=== PATIENT | male | born 1950 | race Caucasian/White ===

== ENCOUNTER → 2016-11-05 | Outpatient (CLI) | payer BC ==
[~2016-11-05] MED LIST: ACET-1256 PO; ASPI325T39 PO; ASPI81TA28 PO; ATOR10TA82 PO; BRIN1SUS OPR; CHOL2000 PO; GEMF600T3 PO; HYDR50TA3 PO; INSDGI SC; INSU100I2 SC; LISI40TA PO; MULT-506 PO; PRED1SUS3 OPL; RXC5 PO; TRAZ100T29 PO; ULT50X PO; ZINC PO
[2016-11-05 17:27] LABS: HEMATOCRIT 37.3 % (42-52); MEAN CELL VOLUME 85.6 fL (80-100); MEAN CORPUSCULAR HGB CONC 35.1 g/dl (32-36); MEAN PLATELET VOLUME 9.7 fL (7.4-10.4); PLATELET COUNT 254 K/uL (130-400); RED BLOOD COUNT 4.36 M/uL (4.7-6.1)
[2016-11-05 17:33] LABS: URINE APPEARANCE CLEAR (CLEAR); URINE BILIRUBIN NEG (NEG); URINE COLOR DK YELLOW; URINE NITRITE NEG (NEG); URINE SPECIFIC GRAVITY 1.022 (1.000-1.030); UROBILINOGEN NEG (NEG)
[2016-11-05 17:38] LABS: MANUAL MICROSCOPIC REQUIRED? NO; REVIEW REQ? NO
[2016-11-05 18:02] LABS: URINE PROTIEN/CREAT RATIO 0.1 (0-0.2); URINE TOTAL PROTEIN 27.5 mg/dl (0-11.9)
[2016-11-05 18:17] LABS: BLOOD UREA NITROGEN 37 mg/dl (7-18); BUN/CREATININE RATIO 20.3 (10-20); CALCIUM 8.8 mg/dl (8.5-10.1); CARBON DIOXIDE 23 mmol/L (21-32); CHLORIDE 105 mmol/L (98-107); GLUCOSE 217 mg/dl (70-99); POTASSIUM 3.7 mmol/L (3.5-5.1); SODIUM 141 mmol/L (136-145)
[2016-11-05 18:19] LABS: PHOSPHORUS 2.6 mg/dl (2.5-4.9)
[2016-11-06 06:29] LABS: ESTIMATED AVERAGE GLUCOSE 177 mg/dl; HA1C FLAG Normal (Normal)
== END | disposition home or self-care (01) ==
LOC: C.LAB1850 16:55
PROVIDERS: ATTEND Internal Medicine Nephrology
DX: E55.9 Vitamin D deficiency, unspecified (principal); N18.2 Chronic kidney disease, stage 2 (mild); R80.9 Proteinuria, unspecified; I12.9 Hypertensive chronic kidney disease with stage 1 through stage 4 chronic kidney disease, or unspecified chronic kidney disease

== ENCOUNTER → 2016-11-26 | Day surgery (SDC) | payer BC ==
[2016-11-06 12:37] VITALS: Ht 172.7 cm; Wt 89.5 kg
[~2016-11-26] VITALS: Ht 172.7 cm; Wt 89.5 kg
[~2016-11-26] MED LIST changes: +500ML BSSPLUS 0.5ML EPI1:1000 IRRIG ONE; +ACETAMINOPHEN 325 MG TAB PO PRN; -ASPI325T39 PO; -ATOR10TA82 PO; +ATOR10TA88 PO; +ATROPINE SULFATE 0.1 MG/ML 5ML SYR IV PRN; +BSS FLUSH ONE; +BUPIVACAINE HCL 0.75% 10 ML AMP/VIAL ONE; +CEFAZOLIN SOD 1 GM VIAL ONE; +DEXAMETHASONE SOD INJ 4 MG/ML VIAL ONE; +EpHEDrine SULFATE INJ 50 MG/ML AMP IV PRN; +EpINEphrine INJ 1MG/ML AMP 1 MG/ML AMP ONE; +FENTANYL CITRATE INJ 50 MCG/1 ML 2 ML VIAL IV PRN; +FENTANYL CITRATE INJ 50 MCG/1 ML 2 ML VIAL ONE; +HYALURONIDASE HUMAN 150 UNIT/ML INJ ONE; +INDOCYANINE GREEN 25 MG/10 ML ONE; +LACTATED RINGER'S 1000ML 500 ML IV SCH; +LIDOCAINE HCL 2% 2 ML VIAL (20MG/ML) ONE; +LIDOCAINE MPF 4% INJ INJ ONE; +MIDAZOLAM HCL 1 MG/ML 2ML VIAL ONE; +NEOMYCIN/POLYMYX/DEXAMETH OP OINT PER APP CHARGE ONE; +OCUCOAT 1 ML SOLN IO ONE; +ONDANSETRON INJ 2 MG/ML 2 ML VIAL IV PRN; +POVIDONE-IODINE OP SOLN 30 ML BTL OPL ONE; +PROPARACAINE 0.5% OP SOLN PER DROP CHARGE OPL SCH; +PROPOFOL IV EMULSION 10 MG/ML 20 ML VIAL IV ONE; -RXC5 PO; +TIMOLOL MALEATE 0.5% OP SOLN PER DROP CHARGE ONE; +TRIAMCINOLONE ACETONIDE OPHTH 40 MG/ML VIAL STERILE IO ONE
[2016-11-26] MEDS: PHENYLEPHRINE HCL 2.5% OP SOLN PER DROP CHARGE OPL SCH ×2 (07:25→07:32)
[2016-11-26] MEDS: TROPICAMIDE 1% OP SOLN PER DROP CHARGE OPL SCH ×2 (07:26→07:33)
--- NOTE | 2016-11-26 08:13 | History & Physical Bridge - SC ---
H&P Re-Evaluation Bridge Note: pt has dislocated Iluvein implant in his left eye and is here for vitrectomy and removal of implant left eye. I have examined the patient, reviewed the History & Physical and in the interval since the performance of the History & Physical I have noted the following changes of clinical significance: No changes noted
--- NOTE | 2016-11-26 08:33 | History and Physical: Surg Cnt ---
History & Physical Date Nov 26, 2016. Chief Complaint dislocated Iluvein implant, left eye History of Present Illness The patient is a 66 year old male with complaints of Past Medical/Surgical History Medical Problems: (1) CKD (chronic kidney disease), stage II (2) DM type 2 (diabetes mellitus, type 2) (3) HTN (hypertension) (4) Hyperlipemia (5) Lumbar stenosis with neurogenic claudication Surgical Problems: (1) H/O eye surgery (2) S/P cholecystectomy Allergies Coded Allergies: No Known Allergies (Unverified , 11/26/16) Home Medications Scheduled Aspirin (Aspirin Ec), 81 MG PO BID Atorvastatin (Lipitor), 10 MG PO HS Brinzolamide Oph (Azopt Oph), 1 DROP OPR BID Cholecalciferol (Vitamin D3), 1 CAP PO QPM Gemfibrozil (Lopid), 600 MG PO BID Hydrochlorothiazide (Hctz), 50 MG PO HS Insulin Glargine (Lantus), 40 UNITS SC HS Insulin Lispro (Human) (Humalog Kwikpen), SC TIDM Lisinopril (Zestril), 40 MG PO BID Trazodone Hcl (Trazodone), 100 MG PO UD [Zinc], 50 MG PO BID Physical Examination Skin: warm/dry Eyes: normal inspection Respiratory/Chest: lungs clear Cardiovascular: regular rate, rhythm Extremities: normal inspection Plan of Treatment removal of Iluvein implant left eye.
--- NOTE | 2016-11-26 09:50 | [facility] Operative Report ---
Operative Report Date of Service Nov 26, 2016. Operative Report PREOPERATIVE DIAGNOSIS: Anterior dislocated Iluvien implant causing corneal decompensation, left eye. ICD10 CODE: T85.398A OPERATIVE DIAGNOSIS: same. PROCEDURE: 1. Pars plana vitrectomy, 23 gauge. 2. Removal of Iluvien implant. 3. Injection of intravitreal triamcinolone 2mg. All to the left eye. CPT CODE: [id number] SURGEON: Real Hairston D.O. COMPLICATIONS: None. ESTIMATED BLOOD LOSS: None. SPECIMENS: None. ANESTHESIA: Retrobulbar block and MAC. INDICATIONS FOR PROCEDURE: Surgery is indicated to decrease risk of vision loss. CONSENT: The risks, benefits and alternatives were discussed with the patient including but not limited to decreased visual acuity, failure to achieve desired results, loss of the eye, infection, pain, glaucoma, lens changes, retinal tears, retinal detachment, the need for more procedures, drooping of the eyelid, blindness, and double vision. The patient is aware of risks and consents to the surgery. Consent is signed and on the chart. OPERATION AND FINDINGS: The patient was brought to the operating room where the patient was identified by name, date, and medical record number. The surgical site was confirmed with the informed written consent. The patient was sedated by the anesthesiology team after which a 50:50 mixture of 4% lidocaine and 0.75% bupivacaine with hyaluronidase was administered in a standard retrobulbar fashion. A total of 4 ml was administered without difficulty. The patient was then prepped and draped in the usual sterile manner for retinal surgery. A wire lid speculum was placed and an Waylon 23-gauge trocar cannula system was employed. Inspection revealed the Iluvien implant inferiorly and corneal folds as well as a loose but centered posterior chamber implant. The inferior temporal trocar cannula was first placed in an angled fashion 3.75mm posterior to the surgical limbus and the infusion cannula was inserted into this cannula after which the intravitreal position was verified prior to turning the infusion on. A 2mm clear corneal incision was made at the 11 o'clock meridian with a keratome. Occucoat was instilled into the anterior chamber and serrated forceps were used to then remove the Iluvien implant without difficulty. Next a limited anterior vitrectomy was performed through the infusion trocar cannula site to make room for intravitreal Triescence 4mg which was then injected. The trocar cannulas were then removed and sutured with 8-0 Vicryl suture. The intraocular pressure was found to be within normal limits by palpation and subconjunctival injections of Kefzol[] and dexamethasone were administered inferiorly and superiorly. The wire lid speculum was removed. Maxitrol and timolol were applied to the surface of the eye. A light patch and shield were taped over the surface of the eye and the patient left the Operating Room in stable condition having tolerated the procedure well. DISPOSITION: The patient has an appointment the following morning in the Ophthalmology Clinic. The patient is to call immediately if there are any problems overnight. I attest to the content of the Intraoperative Record and any orders documented therein. Any exceptions are noted below.
--- NOTE | 2016-11-26 09:51 | Discharge Instructions-SurgCtr ---
Discharge Instructions Date of Service Nov 26, 2016. Visit Reason for Visit: Left Eye Illuvien Discharge Discharge Diagnosis / Problem: same Discharge Goals Goal(s): Improve function Medications Stopped Medications Name(s): Lisinopril and hctz stopped x 2 days. Activity Recommendations Activity Limitations: per Instructions/Follow-up section Anesthesia . Post Anesthesia Instructions: If you have had General Anesthesia or IV Sedation: * Do not drive today. * Resume driving when surgeon permits. * Do not make important decisions or sign legal documents today. * Call surgeon for: 1. Temperature elevations greater than 101 degrees F. 2. Uncontrollable pain. 3. Excessive bleeding. 4. Persistent nausea and vomiting. 5. Medication intolerance (nausea, vomiting or rash). * For nausea and vomiting use only clear liquids such as: tea, soda, bouillon until nausea subsides, then gradually increase diet as tolerated. * If you have any concerns or questions, call your surgeon's office. If physician is unavailable and it is an emergency, call 911 or go to the nearest emergency room. . Instructions / Follow-Up Instructions / Follow-Up * May take Tylenol if needed for discomfort. * Do NOT remove eye shield. * NO straining, heavy lifting (>15 pounds) or bending below waist. * Avoid getting water or soap directly into operative eye. * Do NOT rub eye. If you experience increasing eye pain not relieved by medication, please contact us immediately at [phone]. If you are unable to reach someone at the above number, call [phone] and ask to speak with the EYE DOCTOR TREE SURGEON. Inform them that you are a Dr. Hairston patient who had recent surgery. Diet Recommendations Home Diet: resume previous diet Procedures Procedures Performed: Left Eye 23 Gauge Vitrectomy; Steroid Implant Removal Pending Studies Studies pending at discharge: no Medical Emergencies . Who to Call and When: Medical Emergencies: If at any time you feel your situation is an emergency, please call 911 immediately. . Non-Emergent Contact Non-Emergency issues call your: Lumber Piler Operator . . "Provider Documentation" section prepared by Real Hairston. .
[2016-11-26 10:13] VITALS: BP 161/95; PULSE 56; TEMP 36.4; O2SAT 99
--- NOTE | 2016-11-26 10:21 | Anesthesia Progress Nt - [facility] ---
Anesthesia Post Op Note Date & Time Nov 26, 2016 at 10:20 Vital Signs Pain Intensity: 0 Vital Signs Past 12 Hours Date Time Temp Pulse Resp B/P (MAP) Pulse Ox O2 Delivery O2 Flow Rate FiO2 11/26/16 10:13 36.4 56 18 161/95 (117) 99 Room Air 11/26/16 09:50 36.0 56 16 169/69 (102) 99 Room Air 11/26/16 07:20 36.6 60 18 146/67 (93) 96 Room Air Notes Mental Status: alert / awake / arousable, participated in evaluation Pt Amnestic to Procedure: Yes Nausea / Vomiting: adequately controlled Pain: adequately controlled Airway Patency, RR, SpO2: stable & adequate BP & HR: stable & adequate Hydration State: stable & adequate Anesthetic Complications: no major complications apparent
--- NOTE | 2016-11-26 11:01 | [facility] Post Operative Brief Note ---
Immediate Operative Summary Operative Date Nov 26, 2016. Pre-Operative Diagnosis Left Eye Illuvien Removal Post-Operative Diagnosis Same Procedure(s) Performed Left Eye 23 Gauge Vitrectomy; Steroid Implant Removal Surgeon Dr Hairston Lab Director Surgeon(s) None Estimated Blood Loss 0ML Findings dislocated Iluvien implant, left eye Specimens None
== END | disposition home or self-care (01) ==
LOC: X.SURG 06:48
PROVIDERS: ATTEND Ophthalmology
DX: T85.398A Other mechanical complication of other ocular prosthetic devices, implants and grafts, initial encounter (principal); Y83.2 Surgical operation with anastomosis, bypass or graft as the cause of abnormal reaction of the patient, or of later complication, without mention of misadventure at the time of the procedure; N18.2 Chronic kidney disease, stage 2 (mild); E78.5 Hyperlipidemia, unspecified; E11.9 Type 2 diabetes mellitus without complications; I12.9 Hypertensive chronic kidney disease with stage 1 through stage 4 chronic kidney disease, or unspecified chronic kidney disease; Z90.49 Acquired absence of other specified parts of digestive tract; Z79.82 Long term (current) use of aspirin

== ENCOUNTER 2016-12-19 05:17 | Inpatient (IN) | payer BC, OTHER ==
[2016-12-11 09:27] VITALS: BMI 29.0
--- NOTE | 2016-12-11 10:04 | PAT Medication Instructions ---
Service Date Dec 11, 2016. Current Home Medication List Aspirin (Aspirin Ec), 81 MG PO BID Atorvastatin (Lipitor), 10 MG PO HS Brinzolamide Oph (Azopt Oph), 1 DROP OPR BID Cholecalciferol (Vitamin D3), 1 CAP PO QPM Gemfibrozil (Lopid), 600 MG PO BID Hydrochlorothiazide (Hctz), 50 MG PO HS Insulin Glargine (Lantus), 40 UNITS SC HS Insulin Lispro (Human) (Humalog Kwikpen), SC TIDM Lisinopril (Zestril), 40 MG PO BID Prednisolone Acetate (Ophth) (Pred Forte 1% Oph), 1 DROPS OPL TID Trazodone Hcl (Trazodone), 100 MG PO UD [Zinc], 50 MG PO BID Medication Instructions For Your Scheduled Surgery - Instructed by surgeon to hold as of the night before surgery: Aspirin (Aspirin Ec), 81 MG PO BID - Hold the following medications 24 hours prior to surgery: Gemfibrozil (Lopid), 600 MG PO BID Lisinopril (Zestril), 40 MG PO BID - Hold the following medications the morning of surgery: [Zinc], 50 MG PO BID Insulin Lispro (Human) (Humalog Kwikpen), SC TIDM - Take the following medications the morning of surgery: Brinzolamide Oph (Azopt Oph), 1 DROP OPR BID Prednisolone Acetate (Ophth) (Pred Forte 1% Oph), 1 DROPS OPL TID - Take the following medications as scheduled the night before surgery: [Zinc], 50 MG PO BID Insulin Lispro (Human) (Humalog Kwikpen), SC TIDM Insulin Glargine (Lantus), 40 UNITS SC HS Brinzolamide Oph (Azopt Oph), 1 DROP OPR BID Prednisolone Acetate (Ophth) (Pred Forte 1% Oph), 1 DROPS OPL TID Atorvastatin (Lipitor), 10 MG PO HS Cholecalciferol (Vitamin D3), 1 CAP PO QPM Hydrochlorothiazide (Hctz), 50 MG PO HS Trazodone Hcl (Trazodone), 100 MG PO UD If you have any questions please call us at [phone] or [phone] or [phone]
[2016-12-11 11:13] LABS: BASO ABS # 0.07 K/uL (0-0.2); COMPLETE YES; EOS % 5.5 %; HEMATOCRIT 39.8 % (42-52); IG% 0.3 %; LYMPH % 26.4 %; LYMPH ABS # 1.92 K/uL (1.2-3.4); MEAN CELL VOLUME 87.3 fL (80-100); MEAN CORPUSCULAR HEMOGLOBIN 30.5 pg (25-34); MEAN CORPUSCULAR HGB CONC 34.9 g/dl (32-36); MEAN PLATELET VOLUME 9.8 fL (7.4-10.4); MONO % 8.7 %; NEUT % 58.1 %; PLATELET COUNT 282 K/uL (130-400); RED BLOOD COUNT 4.56 M/uL (4.7-6.1); WHITE BLOOD COUNT 7.26 K/uL (4.8-10.8)
[2016-12-11 11:21] LABS: BUN/CREATININE RATIO 19.1 (10-20); CALCIUM 10.3 mg/dl (8.5-10.1); CREATININE 1.5 mg/dl (0.60-1.40); POTASSIUM 4.7 mmol/L (3.5-5.1); URINE APPEARANCE CLEAR (CLEAR); URINE BILIRUBIN NEG (NEG); URINE COLOR YELLOW; URINE NITRITE NEG (NEG); URINE SPECIFIC GRAVITY 1.012 (1.000-1.030); UROBILINOGEN NEG (NEG); ZZUR CULT IF INDIC CLEAN CATCH NO
[2016-12-11 11:26] LABS: PARTIAL THROMBOPLASTIN RATIO 1.2; PROTHROMBIN TIME (PATIENT) 10.8 SECONDS (9.0-12.0)
[2016-12-11 11:30] LABS: MANUAL MICROSCOPIC REQUIRED? NO; REVIEW REQ? NO
--- NOTE | 2016-12-18 20:02 | HISTORY & PHYSICAL EXAMINATION ---
DATE OF ADMISSION: 12/19/2016 CHIEF COMPLAINT: Chronic right shoulder pain. HISTORY OF PRESENT ILLNESS: This is a 66-year-old male patient of Dr. Boone complaining of chronic right shoulder pain, longstanding, now progressively getting worse. He has been diagnosed with end-stage osteoarthritis per clinical and radiographic exams. The patient wishes to proceed with a right total shoulder arthroplasty, biceps tenodesis and distal clavicle excision. PAST MEDICAL HISTORY: Hypertension, hypercholesterolemia, diabetes mellitus with insulin, osteoarthritis and obesity. SOCIAL HISTORY: Nonsmoker and nondrinker. FAMILY HISTORY: Noncontributory. PAST SURGICAL HISTORY: Cholecystectomy and lumbar surgery. MEDICATIONS: 1. Gemfibrozil 600 mg 2 times daily. 2. Atorvastatin 10 mg daily. 3. Hydrochlorothiazide 50 mg daily. 4. Lantus 100 units per mL subQ. 5. Humalog 100 units per mL subQ. 6. Lisinopril 40 mg b.i.d. 7. Trazodone 50 mg 2 tablets daily. 8. Aspirin 81 mg b.i.d. ALLERGIES: No known drug allergies. PHYSICAL EXAMINATION: GENERAL: Well-developed and well-nourished 66-year-old male, in no acute distress. He is alert, oriented x3 and pleasant. HEENT: Normocephalic and atraumatic. Extraocular motions are intact. Pupils are equal and reactive to light. HEART: Regular rate and rhythm. No murmurs are appreciated. LUNGS: Clear. ABDOMEN: Soft and nontender, bowel sounds are present. EXTREMITIES: Right shoulder reveals active range of motion to 170. He has crepitation with passive range of motion. He has 4-/5 strength. NEUROLOGIC: Neurovascularly, he is intact in his right upper extremity. DIAGNOSES: Right shoulder end-stage osteoarthritis and acromioclavicular arthritis. He also has a history of hypertension, hypercholesterolemia, diabetes mellitus with insulin and obesity. PLAN: The patient was advised of his diagnoses. Indications, risks, benefits and postoperative course have all been reviewed. The patient wishes to proceed with a right total shoulder arthroplasty, biceps tenodesis and distal clavicle excision. Necessary consent forms, preoperative testing and clearances will be obtained. ANA
[2016-12-19] VITALS (11 sets, daily range): BP systolic 105–158; BP diastolic 50–79; PULSE 57–82; TEMP 36.6–36.8; O2SAT 94–100; Ht 172.7 cm; Wt 87.6 kg
[~2016-12-19] VITALS: Ht 172.7 cm; Wt 87.6 kg
[~2016-12-19 05:17] MED LIST changes: -500ML BSSPLUS 0.5ML EPI1:1000 IRRIG ONE; -ACET-1256 PO; -ACETAMINOPHEN 325 MG TAB PO PRN; -ATROPINE SULFATE 0.1 MG/ML 5ML SYR IV PRN; -BSS FLUSH ONE; -BUPIVACAINE HCL 0.75% 10 ML AMP/VIAL ONE; -CEFAZOLIN SOD 1 GM VIAL ONE; -DEXAMETHASONE SOD INJ 4 MG/ML VIAL ONE; -EpHEDrine SULFATE INJ 50 MG/ML AMP IV PRN; -EpINEphrine INJ 1MG/ML AMP 1 MG/ML AMP ONE; -FENTANYL CITRATE INJ 50 MCG/1 ML 2 ML VIAL IV PRN; -FENTANYL CITRATE INJ 50 MCG/1 ML 2 ML VIAL ONE; -HYALURONIDASE HUMAN 150 UNIT/ML INJ ONE; -INDOCYANINE GREEN 25 MG/10 ML ONE; -LACTATED RINGER'S 1000ML 500 ML IV SCH; -LIDOCAINE HCL 2% 2 ML VIAL (20MG/ML) ONE; -LIDOCAINE MPF 4% INJ INJ ONE; -MIDAZOLAM HCL 1 MG/ML 2ML VIAL ONE; -MULT-506 PO; -NEOMYCIN/POLYMYX/DEXAMETH OP OINT PER APP CHARGE ONE; -OCUCOAT 1 ML SOLN IO ONE; -ONDANSETRON INJ 2 MG/ML 2 ML VIAL IV PRN; -POVIDONE-IODINE OP SOLN 30 ML BTL OPL ONE; -PROPARACAINE 0.5% OP SOLN PER DROP CHARGE OPL SCH; -PROPOFOL IV EMULSION 10 MG/ML 20 ML VIAL IV ONE; -TIMOLOL MALEATE 0.5% OP SOLN PER DROP CHARGE ONE; -TRIAMCINOLONE ACETONIDE OPHTH 40 MG/ML VIAL STERILE IO ONE; -ULT50X PO
[2016-12-19] MEDS ORDERED: MULT-506 PO (05:49)
[2016-12-19] MEDS ORDERED: FAMOTIDINE 20 MG TAB PO SCH (06:00)
[2016-12-19] MEDS ORDERED: CEFAZOLIN 2000 MG/60 ML D5W 60 ML IV SCH (06:00)
[2016-12-19] MEDS ORDERED: GABAPENTIN 300 MG CAP PO SCH (06:00)
[2016-12-19] MEDS ORDERED: ACETAMINOPHEN 500 MG TAB PO SCH (06:00)
[2016-12-19] MEDS ORDERED: LACTATED RINGER'S 1000ML IV SCH (06:00)
[2016-12-19] MEDS ORDERED: CeleBREX 200 MG CAP PO SCH (06:00)
[2016-12-19] MEDS ORDERED: METOCLOPRAMIDE HCL 10 MG TAB PO SCH (06:00)
[2016-12-19] MEDS ORDERED: LACTATED RINGER'S 1000ML 1,000 ML IV SCH (06:00)
[2016-12-19] MEDS ORDERED: ACET-1256 PO (06:02)
[2016-12-19] MEDS ORDERED: ROPIVACAINE 0.5% 5 MG/ML 30 ML VIAL ONE (06:36)
[2016-12-19] MEDS ORDERED: MIDAZOLAM HCL 1 MG/ML 2ML VIAL ONE (06:41)
[2016-12-19] MEDS ORDERED: FENTANYL CITRATE INJ 50 MCG/1 ML 2 ML VIAL ONE (06:41)
[2016-12-19] MEDS ORDERED: BACITRACIN 50000 UNIT VIAL ONE (06:49)
[2016-12-19] MEDS ORDERED: EpINEphrine HCL INJ 1 MG/ML 5ML SYRINGE ONE (06:50)
[2016-12-19] MEDS ORDERED: FENTANYL CITRATE INJ 50 MCG/1 ML 2 ML VIAL IV PRN (07:00)
[2016-12-19] MEDS ORDERED: ATROPINE SULFATE 0.1 MG/ML 5ML SYR IV PRN (07:00)
[2016-12-19] MEDS ORDERED: ONDANSETRON INJ 2 MG/ML 2 ML VIAL IV PRN ×2 (07:00→10:45)
[2016-12-19] MEDS ORDERED: EpHEDrine SULFATE INJ 50 MG/ML AMP IV PRN (07:00)
--- NOTE | 2016-12-19 07:11 | History & Physical Bridge Note ---
H&P Re-Evaluation Bridge Note: I have examined the patient, reviewed the History & Physical and in the interval since the performance of the History & Physical I have noted the following changes of clinical significance: No changes noted
[2016-12-19] MEDS ORDERED: PROPOFOL IV EMULSION 10 MG/ML 20 ML VIAL IV ONE (07:53)
[2016-12-19] MEDS ORDERED: ROCURONIUM BROMIDE 10 MG/ML 5 ML VIAL ONE (07:53)
[2016-12-19] MEDS ORDERED: ONDANSETRON INJ 2 MG/ML 2 ML VIAL ONE (07:53)
[2016-12-19] MEDS ORDERED: EpHEDrine SULFATE 50MG/5ML SYR ONE (07:53)
[2016-12-19] MEDS ORDERED: PHENYLEPHRINE 100MCG/ML 5ML SYR ONE (07:53)
[2016-12-19] MEDS ORDERED: DEXAMETHASONE SOD INJ 4 MG/ML VIAL ONE (07:53)
[2016-12-19] MEDS ORDERED: LIDOCAINE HCL 2% 2 ML VIAL (20MG/ML) ONE (07:53)
--- NOTE | 2016-12-19 10:25 | [facility] Post Operative Brief Note ---
Immediate Operative Summary Operative Date Dec 19, 2016. Pre-Operative Diagnosis Right Shoulder End-Stage Osteoarthritis and Acromioclavicular Arthritis biceps tendinopathy Post-Operative Diagnosis Right Shoulder End-Stage Osteoarthritis and Acromioclavicular Arthritis biceps tendinopathy Procedure(s) Performed Right Total Shoulder Arthroplasty with Distal Clavicle Excision and Biceps Tenodesis Surgeon Dr. Acosta Compliance Advisor Surgeon(s) LUCRECIA Roy Estimated Blood Loss 25 ml Findings end stage djd oa marked biceps tendinopahty intact rotator cuff partial tear Specimens A. Portion of Right Humeral Head B. distal clavicle Drains 2 hemovac Anesthesia general regional Complication(s) None Disposition Recovery Room / PACU
[2016-12-19] MEDS ORDERED: BISACODYL 10 MG SUPP PR PRN (10:45)
[2016-12-19] MEDS ORDERED: MoRPHine SULFATE 2 MG/ML CARP IV PRN (10:45)
[2016-12-19] MEDS ORDERED: SOD PHOSPHATE/SOD BIPHOSPHATE ENEMA 132 ML BTL PR PRN (10:45)
[2016-12-19] MEDS ORDERED: METOCLOPRAMIDE HCL INJ 5 MG/ML 2 ML VIAL IV PRN (10:45)
[2016-12-19] MEDS ORDERED: NALOXONE HCL 0.4 MG/1 ML VIAL/CARP IV PRN (10:45)
[2016-12-19] MEDS ORDERED: ZOLPIDEM TARTRATE 5 MG TAB PO PRN (10:45)
--- NOTE | 2016-12-19 11:07 | DIAGNOSTIC IMAGING REPORT ---
RIGHT SHOULDER MIN 2 VIEWS ROUTINE CLINICAL HISTORY: Postop arthroplasty COMPARISON: None. DISCUSSION: There are postsurgical changes of a right shoulder arthroplasty. There are postsurgical changes involve the distal right clavicle. There is no dislocation. There are overlying skin fam and surgical drains. IMPRESSION: Postsurgical changes of a right shoulder arthroplasty Electronically signed by: Esvin Bowen M.D. 12/19/2016 11:05 AM Dictated Date/Time: 12/19/2016 11:04 AM
--- NOTE | 2016-12-19 11:23 | Anesthesiology Progress Note ---
Anesthesia Post Op Note Date & Time Dec 19, 2016 at 11:22 Vital Signs Pain Intensity: 0 Vital Signs Past 12 Hours Date Time Temp Pulse Resp B/P (MAP) Pulse Ox O2 Delivery O2 Flow Rate FiO2 12/19/16 11:13 71 18 12/19/16 11:13 70 18 99 12/19/16 11:12 147/60 12/19/16 11:08 69 20 12/19/16 11:08 68 20 99 12/19/16 11:07 149/51 12/19/16 11:03 70 17 12/19/16 11:03 70 17 99 12/19/16 11:02 148/50 12/19/16 10:58 70 17 12/19/16 10:58 69 17 99 12/19/16 10:57 70 20 137/79 99 12/19/16 10:57 70 20 12/19/16 10:52 70 19 12/19/16 10:52 70 19 149/61 100 12/19/16 10:47 71 18 100 12/19/16 10:47 70 18 12/19/16 10:46 150/66 12/19/16 10:44 71 18 12/19/16 10:44 71 18 100 12/19/16 10:42 140/84 12/19/16 10:39 71 16 100 12/19/16 10:39 71 16 12/19/16 10:36 150/57 12/19/16 10:35 142/64 12/19/16 10:34 36.3 73 16 142/64 100 Mask 10 12/19/16 05:50 36.8 57 22 158/72 100 Room Air Notes Mental Status: alert / awake / arousable, participated in evaluation Pt Amnestic to Procedure: Yes Nausea / Vomiting: adequately controlled Pain: adequately controlled Airway Patency, RR, SpO2: stable & adequate BP & HR: stable & adequate Hydration State: stable & adequate Anesthetic Complications: no major complications apparent
[2016-12-19] MEDS: POTASSIUM CHLORIDE INJ 10 MEQ in SODIUM CHLORIDE 0.9% 1000ML 1,000 ML IV SCH ×2 (12:29→22:36)
[2016-12-19] MEDS ORDERED: TRAZODONE HCL 50 MG TAB PO PRN (12:30)
[2016-12-19] MEDS ORDERED: DEXTROSE 50% 50 ML SYR IV PRN (12:30)
[2016-12-19] MEDS ORDERED: GLUCOSE 40% GEL 15 GM TUBE PO PRN (12:30)
[2016-12-19] MEDS ORDERED: GLUCAGON FOR INJ 1 MG VIAL SQ PRN (12:30)
[2016-12-19] MEDS ORDERED: GLUCOSE 10 TABS/TUBE PO PRN (12:30)
[2016-12-19] MEDS: INSULIN ASPART 100 UNITS/ML 3 ML PEN SC SCH ×3 (13:29→21:21)
[2016-12-19] MEDS: PrednisoLONE ACET 1% OP SUSP 5 ML BTL OPL SCH ×2 (13:30→21:23)
[2016-12-19] MEDS: ACETAMINOPHEN 500 MG TAB PO SCH ×2 (13:30→22:31)
--- NOTE | 2016-12-19 13:42 | Medical Consult ---
Consultation Date of Consultation: Dec 19, 2016. Attending Physician: Shaun Acosta M.D. Reason for Consultation: Postoperative medical management History of Present Illness The patient is a 66-year-old male who underwent a right total shoulder arthroplasty by Dr. Acosta earlier in the day today. Seen postoperatively, he has no complaints other than the expected postoperative discomfort. He denies chest pain, palpitations, shortness of breath, fevers, chills, nausea, vomiting , diarrhea, constipation, lightheadedness, dizziness, rash, focal weakness in legs. Social History Smoking Status: Never Smoker Smokeless Tobacco Use: No Alcohol Use: none Drug Use: none Marital Status: Housing Status: lives with family Allergies Coded Allergies: No Known Allergies (Unverified , 12/19/16) Home Medications Gemfibrozil to 100 mg by mouth twice a day Atorvastatin 10 mg by mouth daily HCTZ 50 mg by mouth daily Lantus 100 units subcutaneous daily Humalog per scale with meals Lisinopril 40 mg by mouth twice a day Trazodone 100 mg at bedtime Aspirin 81 mg by mouth twice a day Current Inpatient Medications Current Inpatient Medications Medications (Trade) Dose Ordered Sig/Iqra Route Start Time Stop Time Status Last Admin Dose Admin Aspirin (Ecotrin Tab) 81 mg BID PO 12/19/16 21:00 01/18/17 20:59 Atorvastatin Calcium (Lipitor Tab) 10 mg HS PO 12/19/16 21:00 01/18/17 20:59 Brinzolamide (Azopt) 1 drops BID OPR 12/19/16 21:00 01/18/17 20:59 Gemfibrozil (Lopid Tab) 600 mg BID PO 12/19/16 21:00 01/18/17 20:59 Hydrochlorothiazide (Hydrochlorothiazide Tab) 50 mg HS PO 12/19/16 21:00 01/18/17 20:59 Lisinopril (Zestril Tab) 40 mg BID PO 12/19/16 21:00 01/18/17 20:59 Prednisolone Acetate (Pred Forte 1% Oph Susp) 1 drops TID OPL 12/19/16 14:00 01/18/17 13:59 12/19/16 13:30 1 DROPS Trazodone HCl (Desyrel Tab) 100 mg HS PO 12/19/16 21:00 01/18/17 20:59 Cholecalciferol (Vitamin D Tab) 2,000 inter.unit QPM PO 12/19/16 21:00 01/18/17 20:59 Diphenhydramine HCl (Benadryl Cap) 25 mg Q8 PRN PO 12/19/16 10:45 01/18/17 10:44 Zolpidem Tartrate (Ambien Tab) 5 mg HSZ PRN PO 12/19/16 10:45 01/18/17 10:44 Metoclopramide HCl (Reglan Inj) 10 mg Q6H PRN IV 12/19/16 10:45 01/18/17 10:44 Ondansetron HCl (Zofran Inj) 4 mg Q6H PRN IV 12/19/16 10:45 01/18/17 10:44 Pantoprazole Sodium (Protonix Tab) 40 mg QAM PO 12/20/16 09:00 01/19/17 08:59 Potassium Chloride 10 meq/ Sodium Chloride 1,005 ml @ 100 mls/hr Q10H3M IV 12/19/16 12:45 12/20/16 11:00 12/19/16 12:29 100 MLS/HR Oxycodone HCl (Roxicodone Immediate Rel Tab) `1-2 TABS FOR PAIN `1 TAB... Q4H PRN PO 12/19/16 10:45 01/02/17 10:44 Oxycodone HCl (Oxycontin Tab) 10 mg Q12 PO 12/19/16 21:00 01/02/17 20:59 Acetaminophen (Tylenol Tab) 1,000 mg Q8 PO 12/19/16 14:00 01/18/17 13:59 12/19/16 13:30 1,000 MG Morphine Sulfate (MoRPHine SULFATE INJ) 2 mg Q2H PRN IV 12/19/16 10:45 01/02/17 10:44 Naloxone HCl (Narcan Inj) 0.1 mg Q2M PRN IV 12/19/16 10:45 01/18/17 10:44 Magnesium Hydroxide (Milk Of Magnesia Susp) 30 ml Q6H PRN PO 12/19/16 10:45 01/18/17 10:44 Bisacodyl (Dulcolax Supp) 10 mg DAILY PRN TN 12/19/16 10:45 01/18/17 10:44 Sodium Biphosphate/ Sodium Phosphate (Fleet Enema) 132 ml DAILY PRN TN 12/19/16 10:45 01/18/17 10:44 Docusate Sodium (coLACE CAP) 100 mg BID PO 12/19/16 21:00 01/18/17 20:59 Multivitamins (Multivitamin Tab) 1 tab DAILY PO 12/20/16 09:00 01/19/17 08:59 Cefazolin Sodium 2000 mg/Dextrose 60 ml @ 100 mls/hr Q8H IV 12/19/16 16:00 12/20/16 00:35 Insulin Aspart (novoLOG ASPART) SLIDING SCALE G... ACHS SC 12/19/16 13:00 01/18/17 12:59 12/19/16 13:29 3 UNITS Trazodone HCl (Desyrel Tab) 50 mg HS PRN PO 12/19/16 12:30 01/18/17 12:29 Glucose (Glucose 40% Gel) 15-30 GRAMS 15 GRAMS... UD PRN PO 12/19/16 12:30 01/18/17 12:29 Glucose (Glucose Chew Tab) 4-8 Tablets 4 Tabl... UD PRN PO 12/19/16 12:30 01/18/17 12:29 Dextrose (Dextrose 50% 50ML Syringe) 25-50ML OF 50% DW IV FOR... UD PRN IV 12/19/16 12:30 01/18/17 12:29 Glucagon (Glucagon Inj) 1 mg UD PRN SQ 12/19/16 12:30 01/18/17 12:29 Morphine Sulfate (MoRPHine SULFATE INJ) 4 mg Q2H PRN IV 12/19/16 12:30 01/02/17 12:29 Review of Systems The patient denies chest pain, palpitations, shortness of breath, cough, lower extremity swelling, vision change, hearing change, sore throat, fevers, chills, sweats, fatigue, nausea, vomiting, abdominal pain, pelvic pain, blood in urine or stool, dysuria, urinary frequency or urgency, lightheadedness, dizziness, headache, memory loss, rash, abnormal bruising or bleeding, imbalance, generalized weakness, numbness or tingling in legs, generalized arthralgias or myalgias, back or neck pain, night sweats, or allergy symptoms. The review of systems is otherwise negative other than for that already noted above, and at least 10 systems have been reviewed. Physical Exam Date Time Temp Pulse Resp B/P (MAP) Pulse Ox O2 Delivery O2 Flow Rate FiO2 12/19/16 13:28 82 16 115/56 (75) 94 Room Air 12/19/16 12:24 76 16 119/71 (87) 97 Nasal Cannula 2.0 12/19/16 12:00 36.6 74 19 139/69 (92) 96 Nasal Cannula 2.0 12/19/16 11:35 36.8 72 16 115/68 (84) 96 Nasal Cannula 2.0 12/19/16 11:35 Nasal Cannula 2.0 12/19/16 11:35 96 Nasal Cannula 2.0 12/19/16 11:26 36.6 12/19/16 11:24 75 14 12/19/16 11:24 75 14 99 12/19/16 11:22 107/62 12/19/16 11:19 74 18 12/19/16 11:19 74 18 99 12/19/16 11:17 160/72 12/19/16 11:14 74 21 12/19/16 11:14 72 21 99 12/19/16 11:13 71 18 12/19/16 11:13 70 18 99 12/19/16 11:12 147/60 12/19/16 11:08 69 20 12/19/16 11:08 68 20 99 12/19/16 11:07 149/51 12/19/16 11:03 70 17 12/19/16 11:03 70 17 99 12/19/16 11:02 148/50 12/19/16 10:58 70 17 12/19/16 10:58 69 17 99 12/19/16 10:57 70 20 137/79 99 12/19/16 10:57 70 20 12/19/16 10:52 70 19 12/19/16 10:52 70 19 149/61 100 12/19/16 10:47 71 18 100 12/19/16 10:47 70 18 12/19/16 10:46 150/66 12/19/16 10:44 71 18 12/19/16 10:44 71 18 100 12/19/16 10:42 140/84 12/19/16 10:39 71 16 100 12/19/16 10:39 71 16 12/19/16 10:36 150/57 12/19/16 10:35 142/64 12/19/16 10:34 36.3 73 16 142/64 100 Mask 10 12/19/16 05:50 36.8 57 22 158/72 100 Room Air The patient is awake, well-developed and adequately nourished, alert and oriented 3, normocephalic and atraumatic, lying in bed and in no acute distress. HEENT--PERRL, EOMI, mucous membranes and oropharynx mildly dry. Neck--supple, no JVD or bruits, thyroid normal, trachea midline, no adenopathy. Heart--normal S1 and S2, systolic murmur, no rubs or gallops. Lungs--clear bilaterally with good air movement, no respiratory distress, no accessory muscle use. Abdomen--normal bowel sounds and soft, nontender and nondistended, no hernias or masses, no organomegaly. Extremities--no cyanosis, clubbing or edema. There are good distal pulses b/l. Right shoulder wrapped. Dermatologic--normal skin turgor, normal color, warm and dry, no abnormal lymph nodes, no rash. Neurologic--cranial nerves II through XII grossly intact, motor and sensory examination normal. Rheumatologic--normal range of motion, nontender, muscles and joints. Psychiatric--normal affect. Laboratory Results Last 24 Hours Test 12/19/16 05:49 12/19/16 08:14 12/19/16 08:17 12/19/16 09:54 Bedside Glucose 107 mg/dl 114 mg/dl 106 mg/dl 134 mg/dl Test 12/19/16 10:38 12/19/16 12:06 Bedside Glucose 150 mg/dl 154 mg/dl Assessment & Plan Seen status post right total shoulder arthroplasty--medically stable. Diabetes mellitus--continue Lantus [address] on Accu- Cheks before meals and at bedtime with NovoLog coverage per scale. Hypertension--home medications are HCTZ 50 mg by mouth daily and lisinopril 40 mg by mouth twice a day. Due to present low blood pressure, hold HCTZ, and cut lisinopril to 20 mg by mouth twice a day with hold parameters. Continue aspirin 81 mg by mouth twice a day when okay with orthopedics. Hyperlipidemia--continue atorvastatin 10 mg by mouth daily and gemfibrozil 600 mg by mouth twice a day. Insomnia--continue trazodone 100 mg by mouth at bedtime. Thank you for this consult. [facility].
--- NOTE | 2016-12-19 14:01 | Medical Student: [facility] ---
Consultation Date of Consultation: Dec 19, 2016. Requesting Physician: Dr. Aocsta Attending Physician: Dr. Beckham Reason for Consultation: post-op medical management History of Present Illness Mr. Chase is a 66yo male with a history of T2DM on insulin who is day 0 s/p right total shoulder arthroplasty by Dr. Acosta. Following surgery he has 1/10 pain in his shoulder and some right hand numbness. No other complaints. Denies fevers, chills, cp, palpitations, sob, n/v/d, constipation, calf tenderness. Past Medical/Surgical History Medical History: 1. T2DM on insulin 2. hypertension 3. hypercholesterolemia 4. osteoarthritis Social History Smoking Status: Never Smoker History of Alcohol Use: No Drug Use: none Marital Status: Review of Systems Constitutional: No fever, No chills, No weakness Eyes: No eye pain, No diplopia ENT: No hearing loss, No sore throat, No trouble swallowing Respiratory: No cough, No wheezing, No shortness of breath Cardiac: No chest pain, No palpitations Abdomen: No pain, No nausea, No vomiting, No diarrhea, No constipation Musculoskeletal: No muscle pain, No calf pain Neurologic: + numbness/tingling, No paralysis, No weakness Psychiatric: No depression symptoms, No anxiety Allergies Coded Allergies: No Known Allergies (Unverified , 12/19/16) Medications Current Inpatient Medications Medications (Trade) Dose Ordered Sig/Iqra Route Start Time Stop Time Status Last Admin Dose Admin Aspirin (Ecotrin Tab) 81 mg BID PO 12/19/16 21:00 01/18/17 20:59 Atorvastatin Calcium (Lipitor Tab) 10 mg HS PO 12/19/16 21:00 01/18/17 20:59 Brinzolamide (Azopt) 1 drops BID OPR 12/19/16 21:00 01/18/17 20:59 Gemfibrozil (Lopid Tab) 600 mg BID PO 12/19/16 21:00 01/18/17 20:59 Prednisolone Acetate (Pred Forte 1% Oph Susp) 1 drops TID OPL 12/19/16 14:00 01/18/17 13:59 12/19/16 13:30 1 DROPS Trazodone HCl (Desyrel Tab) 100 mg HS PO 12/19/16 21:00 01/18/17 20:59 Cholecalciferol (Vitamin D Tab) 2,000 inter.unit QPM PO 12/19/16 21:00 01/18/17 20:59 Diphenhydramine HCl (Benadryl Cap) 25 mg Q8 PRN PO 12/19/16 10:45 01/18/17 10:44 Metoclopramide HCl (Reglan Inj) 10 mg Q6H PRN IV 12/19/16 10:45 01/18/17 10:44 Ondansetron HCl (Zofran Inj) 4 mg Q6H PRN IV 12/19/16 10:45 01/18/17 10:44 Pantoprazole Sodium (Protonix Tab) 40 mg QAM PO 12/20/16 09:00 01/19/17 08:59 Potassium Chloride 10 meq/ Sodium Chloride 1,005 ml @ 100 mls/hr Q10H3M IV 12/19/16 12:45 12/20/16 11:00 12/19/16 12:29 100 MLS/HR Oxycodone HCl (Roxicodone Immediate Rel Tab) `1-2 TABS FOR PAIN `1 TAB... Q4H PRN PO 12/19/16 10:45 01/02/17 10:44 Oxycodone HCl (Oxycontin Tab) 10 mg Q12 PO 12/19/16 21:00 01/02/17 20:59 Acetaminophen (Tylenol Tab) 1,000 mg Q8 PO 12/19/16 14:00 01/18/17 13:59 12/19/16 13:30 1,000 MG Morphine Sulfate (MoRPHine SULFATE INJ) 2 mg Q2H PRN IV 12/19/16 10:45 01/02/17 10:44 Naloxone HCl (Narcan Inj) 0.1 mg Q2M PRN IV 12/19/16 10:45 01/18/17 10:44 Magnesium Hydroxide (Milk Of Magnesia Susp) 30 ml Q6H PRN PO 12/19/16 10:45 01/18/17 10:44 Bisacodyl (Dulcolax Supp) 10 mg DAILY PRN MA 12/19/16 10:45 01/18/17 10:44 Sodium Biphosphate/ Sodium Phosphate (Fleet Enema) 132 ml DAILY PRN MA 12/19/16 10:45 01/18/17 10:44 Docusate Sodium (coLACE CAP) 100 mg BID PO 12/19/16 21:00 01/18/17 20:59 Multivitamins (Multivitamin Tab) 1 tab DAILY PO 12/20/16 09:00 01/19/17 08:59 Cefazolin Sodium 2000 mg/Dextrose 60 ml @ 100 mls/hr Q8H IV 12/19/16 16:00 12/20/16 00:35 Insulin Aspart (novoLOG ASPART) SLIDING SCALE G... ACHS SC 12/19/16 13:00 01/18/17 12:59 12/19/16 13:29 3 UNITS Trazodone HCl (Desyrel Tab) 50 mg HS PRN PO 12/19/16 12:30 01/18/17 12:29 Glucose (Glucose 40% Gel) 15-30 GRAMS 15 GRAMS... UD PRN PO 12/19/16 12:30 01/18/17 12:29 Glucose (Glucose Chew Tab) 4-8 Tablets 4 Tabl... UD PRN PO 12/19/16 12:30 01/18/17 12:29 Dextrose (Dextrose 50% 50ML Syringe) 25-50ML OF 50% DW IV FOR... UD PRN IV 12/19/16 12:30 01/18/17 12:29 Glucagon (Glucagon Inj) 1 mg UD PRN SQ 12/19/16 12:30 01/18/17 12:29 Morphine Sulfate (MoRPHine SULFATE INJ) 4 mg Q2H PRN IV 12/19/16 12:30 01/02/17 12:29 Lisinopril (Zestril Tab) 20 mg BID PO 12/19/16 21:00 01/18/17 20:59 Physical Exam Date Time Temp Pulse Resp B/P (MAP) Pulse Ox O2 Delivery O2 Flow Rate FiO2 12/19/16 13:28 82 16 115/56 (75) 94 Room Air 12/19/16 12:24 76 16 119/71 (87) 97 Nasal Cannula 2.0 12/19/16 12:00 36.6 74 19 139/69 (92) 96 Nasal Cannula 2.0 12/19/16 11:35 36.8 72 16 115/68 (84) 96 Nasal Cannula 2.0 12/19/16 11:35 Nasal Cannula 2.0 12/19/16 11:35 96 Nasal Cannula 2.0 12/19/16 11:26 36.6 12/19/16 11:24 75 14 12/19/16 11:24 75 14 99 12/19/16 11:22 107/62 12/19/16 11:19 74 18 12/19/16 11:19 74 18 99 12/19/16 11:17 160/72 12/19/16 11:14 74 21 12/19/16 11:14 72 21 99 12/19/16 11:13 71 18 12/19/16 11:13 70 18 99 12/19/16 11:12 147/60 12/19/16 11:08 69 20 12/19/16 11:08 68 20 99 12/19/16 11:07 149/51 12/19/16 11:03 70 17 12/19/16 11:03 70 17 99 12/19/16 11:02 148/50 12/19/16 10:58 70 17 12/19/16 10:58 69 17 99 12/19/16 10:57 70 20 137/79 99 12/19/16 10:57 70 20 12/19/16 10:52 70 19 12/19/16 10:52 70 19 149/61 100 12/19/16 10:47 71 18 100 12/19/16 10:47 70 18 12/19/16 10:46 150/66 12/19/16 10:44 71 18 12/19/16 10:44 71 18 100 12/19/16 10:42 140/84 12/19/16 10:39 71 16 100 12/19/16 10:39 71 16 12/19/16 10:36 150/57 12/19/16 10:35 142/64 12/19/16 10:34 36.3 73 16 142/64 100 Mask 10 12/19/16 05:50 36.8 57 22 158/72 100 Room Air General Appearance: WD/WN, no apparent distress, + pertinent finding (laying comfortably in bed on 2L NC) Eyes: bilateral eyes normal inspection, bilateral eyes PERRL, bilateral eyes EOMI ENT: normal ENT inspection, hearing grossly normal, pharynx normal Neck: supple, no adenopathy, no carotid bruits Respiratory: lungs clear, normal breath sounds, no respiratory distress, no accessory muscle use Cardiovascular: regular rate, rhythm, no gallop, + systolic murmur (2/6 systolic ejection murmur) Abdomen: normal bowel sounds, non tender, soft Musculoskeletal: normal, normal tone, pertinent finding (right shoulder dressing c/d/i with no drainage) 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 Acosta. He is medically stable following surgery. Plan: Precautions: Fall Admit for observation under the care of Dr. Beckham 1. osteoarthritis day 0 s/p RIGHT TSA by Dr. Acosta on 12/19/16 -vitals q30min -OOB with assistance -encourage incentive spirometry -I/Os -PRN Tylenol 1000mg q4h prn pain -PRN oxycodone 10mg q12h prn severe pain -docusate 100mg PO BID -HOLD home aspirin per orthopaedics -Santamaria catheter -PT/OT evaluate and treat -AM CBC w/ diff -AM BMP -AM partial renal panel -call HO: BP <110/60, HR < 60, T >100.4 or <96.8, new chest pain, new SOB, new AMS 2. Hypertension, BP 115/68, HR 72 -restart home lisinopril 40mg PO BID -HOLD home HCTZ for low BP 3. T2DM, controlled on home insulin -Accuchecks ACHS -continue home lantus 100U -PRN sliding scale humalog 4. Hypercholesterolemia -restart home atorvastatin 10mg -restart home gemfibrozil 600mg PO BID 5. Insomnia -continue home trazodone 100mg QHS 6. Diet -consistent carbohydrate diet 7. DVT prophylaxis -SCDs -patient will ambulate as tolerated 8. Disposition -Location: home -Date: 12/20/16
[2016-12-19] MEDS: CEFAZOLIN IV 2,000 MG in DEXTROSE 5% 50ML 50 ML IV SCH (16:09)
[2016-12-19] MEDS ORDERED: LISINOPRIL 40 MG TAB PO SCH (21:00)
[2016-12-19] MEDS: LISINOPRIL 40 MG TAB PO SCH (21:00)
[2016-12-19] MEDS ORDERED: ZINC 50 MG PO SCH (21:00)
[2016-12-19] MEDS ORDERED: HYDROCHLOROTHIAZIDE 50 MG TAB PO SCH (21:00)
[2016-12-19] MEDS: INSULIN GLARGINE SOLOSTAR 100 UNITS/ML 3 ML PEN SC SCH (21:22)
[2016-12-19] MEDS: BRINZOLAMIDE (AZOPT) OPS 10 ML BTL OPR SCH (21:23)
[2016-12-19] MEDS: GEMFIBROZIL 600 MG TAB PO SCH (21:25)
[2016-12-19] MEDS: ASPIRIN 81 MG ECTAB PO SCH (21:25)
[2016-12-19] MEDS: ATORVASTATIN 10 MG TAB PO SCH (21:25)
[2016-12-19] MEDS: CHOLECALCIFEROL 1000 INTER.UNIT TAB PO SCH (21:26)
[2016-12-19] MEDS: DOCUSATE SODIUM 100 MG CAP PO SCH (21:26)
[2016-12-19] MEDS: OXYCODONE HCL 10 MG TABCR (OXYCONTIN) PO SCH (21:26)
[2016-12-19] MEDS: TRAZODONE HCL 100 MG TAB PO SCH (22:31)
--- NOTE | 2016-12-19 23:55 | OPERATIVE REPORT ---
DATE OF OPERATION: 12/19/2016 INDICATION FOR PROCEDURE: A 66-year-old male with chronic progressive osteoarthritis in the right shoulder. Radiographs demonstrate that he does have AC joint arthritis and oblique AC joint with some spurs causing subacromial impingement. He has [id number] glenohumeral arthritis. He still has maintained subacromial space. There is no proximal migration of the humerus. He has concentric wear on the glenoid, completely bone on bone on axillary view. MRI demonstrates an intact rotator cuff with some rotator cuff tendinopathy, but no full thickness rotator cuff tear. He does have some osteophytes and calcifications around the superior humeral head and large inferior humeral osteophytes. PREOPERATIVE DIAGNOSIS: End-stage osteoarthritis of the right shoulder with rotator cuff tendinopathy and biceps tendinopathy including acromioclavicular joint osteoarthritis and subacromial impingement. POSTOPERATIVE DIAGNOSIS: Same with marked biceps tendinopathy. Intact rotator cuff with no full thickness tear but some partial intra-articular tearing noted. PROCEDURE: Right total shoulder arthroplasty including biceps tenodesis, distal clavicle excision, debridement rotator cuff. SURGEON: Dr. Acosta. DIRECTOR OF MARKETING: LUCRECIA Roy. ANESTHESIA: Regional block and general. OPERATIVE PROCEDURE: The patient was taken to the operating room, anesthetized with regional block and general anesthetic. He was positioned on the operating room table in a 30-degree beach chair position with a towel under the medial border of his right scapula. He was placed toward the lateral side of the right side of the bed, so his shoulder could be manipulated off the bed as necessary during the procedure. His head was placed on a foam headrest. He had protective eyewear placed. He had TEDs, SCDs and a Santamaria catheter placed. His right shoulder was examined under anesthesia. He had about 120 degrees of forward elevation, 90 degrees of abduction and 15 degrees of external rotation. He had [id number] crepitation. His right shoulder was then sterilely prepped and draped with ChloraPrep in the usual sterile fashion. An anterior deltopectoral approach was performed. Skin incised sharply. Subcutaneous flaps were elevated. The patient did not have a well-defined cephalic vein. The deltoid was retracted laterally. The pectoralis was retracted medially. The upper centimeter of the pectoralis was released for inferior exposure. The patient had scarred rotator cuff bursa over the subscapularis, supraspinatus and infraspinatus. This was all resected. The rotator cuff was completely intact on the outer surface. The circumflex vessels were identified, tied off with silk ties and divided laterally. The subscapularis muscle was split at the level of the circumflex vessels, divided down to the capsule and then we released off the inferior capsule with a Kitner elevator. A blunt Hohmann retractor was placed to protect the axillary nerve. The biceps tendon sheath was opened up and there was chronic biceps tenosynovitis noted. There were large bicipital bone spurs bridging over and across the biceps tendon. Biceps tendon was tenodesed to these pectoralis tendon with [id number] #2 FiberWire suture, then released proximally. The chronic inflamed tenosynovium was resected. All the rotator cuff bursa was resected. The rotator interval was opened up and extended laterally and then a vertical incision was made down to the tendon of the subscapularis, leaving a cuff of tissue for repair. There was some tendinopathic upper portion of the subscapularis and some of this was partially torn off of lesser tuberosity. A #1 Vicryl traction suture was placed into the end of the subscapularis tendon and capsule. The capsule was then divided under direct visualization down to the anterior glenoid, released off the anterior glenoid and rotator interval was divided down to meet the capsule release with a 360-degree release of the subscapularis. The coracohumeral ligament was also released. Bankart retractor was placed anteriorly. The axillary nerve was protected with blunt Hohmann retractor inferiorly. The glenoid labrum was resected circumferentially and the large thickened widened biceps tendon which was noted intraarticularly, which was 3 times size of the normal biceps tendon and ribbon like and flattened out due to chronic tendinopathy. This was all resected. The glenoid was completely devoid of any articular cartilage down to the complete bone. There was concentric wear of the glenoid. Humeral head also had exposed bone on the humeral head articular surface as well. The osteophytes about the humeral head were all resected with an artist chisel and a rongeur. I retracted the humeral head posterior to the glenoid and used electrocautery on bone and a Bailey elevator to an anterior-inferior, posterior-inferior capsular release. Adequate exposure of the glenoid was performed, we went ahead and exposed the humeral head. The humeral head was exposed with extension and external rotation. Oscillating saw was used to resect the articular surface. The articular surface was measured and a 52 x 19 mm humeral head component matched the size of resected head best. I used the Tornier total shoulder arthroplasty system using the Ascend Flex humeral component and the Affiniti CortiLoc glenoid component. The humeral head was retracted posterior to the glenoid with retractors. Bankart retractor was placed anteriorly. The glenoid was fully exposed. A central drill hole was made, followed by reamer for the 52 mm glenoid. After the reaming was completed, we widened the central hole, used the guide to drill the peripheral peg holes, irrigated out the glenoid, and then I placed epinephrine soaked tampons into the individual drill holes and vacuum mixed the Palacos G cement. Then we cemented in the final component which was the Affiniti CortiLoc size 52 glenoid. All excess cement was cleared. After the cement cured, after further irrigation, we went ahead and exposed the humeral head with extension and external rotation. The cut surface of the central region was fashioned with a starter awl to find the canal and then we went ahead and used sequential broaches up to a 4, which had the best fit and fill. The broaches were used up to a 4 and then the 52 x 19 high offset trial was placed, rotated in position to get full coverage and then tightened down. The stability was assessed, which was noted to be good stability, no instability posteriorly, inferiorly or anteriorly with range of motion. Then we went ahead and checked subscapularis tension which was satisfactory. At this point, the trials of the humerus were removed. Then drill holes were made through the hard bone in the bicipital groove area lateral to the lesser tuberosity and transosseous #5 FiberWire sutures x3 were placed for repair of the subscapularis. The final component was assembled on the back table. Final component was the 52 x 19 high offset humeral head cobalt chromium Ascend Flex humerus head, which was assembled to the Ascend Flex size for a standard stem. This construct was then impacted into the humerus. There was good press fit. The humerus was used through the glenoid. Then the subscapularis was repaired with the #5 FiberWire sutures in Rober-Bryan suture technique. Interrupted lateral row soft tissue fixation was performed with [id number] #2 Fiberwire sutures and the rotator interval was closed in maximal external rotation with interrupted #2 Fiberwire sutures. The range of motion was obtained passively and the patient had 120 degrees of forward elevation, 90 degrees of abduction and 30 degrees of external rotation without any tension on the repair. After copious irrigation, the pectoralis tendon was repaired with the #2 FiberWire sutures, placing the sutures through the biceps tendon to reinforce biceps tenodesis. Attention was then taken to the distal clavicle. A transverse incision was made over the AC joint. Skin was incised sharply. Subcutaneous flaps were elevated. The deltotrapezius fascia was divided longitudinally over the distal clavicle. Subperiosteal dissection was performed to expose the distal clavicle which was hypertrophic. There were spurs superiorly and inferiorly and advanced osteoarthritis. A 1 cm distal clavicle was resected and some hypertrophic bone posteriorly was removed with a rongeur. Then we used a Tiemann rasp to smooth out the resection. The inferior acromial set screws were resected with a rongeur and a Tiemann rasp was used to smooth that area down to. The wound was irrigated copiously and then the deltotrapezius fascia was closed with interrupted [id number] #2 FiberWire sutures. Then the subcutaneous tissues were closed with interrupted 2-0 Vicryl and skin closed with fam. The anterior wound had 2 Hemovac drains placed first and deltopectoral interval was closed with a running #1 Vicryl suture, the subcutaneous tissues were closed with interrupted 2-0 Vicryl, skin was closed with fam. Sterile dressings were applied and shoulder immobilizer. LUCRECIA Roy was my assistant director of admissions. He functioned as assistant director of admissions in the entire procedure. He assisted in patient positioning, prepping, draping, arm positioning, instrument management, soft tissue retraction, suture management during the repair and he will participate in the postoperative care of the patient. I attest to the content of the Intraoperative Record and any orders documented therein. Any exception s are noted below.
[2016-12-20] VITALS (10 sets, daily range): BP systolic 120–160; BP diastolic 60–73; PULSE 62–74; TEMP 36.8–36.9; O2SAT 91–94
[2016-12-20] MEDS: CEFAZOLIN IV 2,000 MG in DEXTROSE 5% 50ML 50 ML IV SCH (00:02)
[2016-12-20] MEDS: OXYCODONE HCL IR 5 MG TAB (IMMEDIATE RELEASE) PO PRN ×3 (00:10→08:45)
[2016-12-20] MEDS: MoRPHine SULFATE 4 MG/ML 1 ML CARP\\VIAL IV PRN ×2 (03:09→05:48)
[2016-12-20] MEDS: ACETAMINOPHEN 500 MG TAB PO SCH ×3 (05:47→21:32)
[2016-12-20 06:05] LABS: HEMATOCRIT 32.4 % (42-52); MEAN CELL VOLUME 88.5 fL (80-100); MEAN CORPUSCULAR HEMOGLOBIN 30.1 pg (25-34); MEAN PLATELET VOLUME 9.5 fL (7.4-10.4); PLATELET COUNT 226 K/uL (130-400); RED BLOOD COUNT 3.66 M/uL (4.7-6.1); WHITE BLOOD COUNT 10.49 K/uL (4.8-10.8)
[2016-12-20 06:42] LABS: BUN/CREATININE RATIO 22.8 (10-20); CALCIUM 8.4 mg/dl (8.5-10.1); CREATININE 1.6 mg/dl (0.60-1.40); POTASSIUM 3.7 mmol/L (3.5-5.1)
--- NOTE | 2016-12-20 07:03 | OPERATIVE REPORT ---
DATE OF OPERATION: 12/19/2016 ADDENDUM: During exposure of the humeral head and when we made a humeral head cut, we did note that the patient had a partial intraarticular tear of the rotator cuff and this was debrided sharply with a scalpel back to intact fibers. He also had some hypertrophic inflamed capsular tissue, which was excised at that time, as well. The rotator cuff tear did not detach any of the rotator cuff fully and no formal repair was required. I attest to the content of the Intraoperative Record and any orders documented therein. Any exception s are noted below.
--- NOTE | 2016-12-20 08:10 | Orthopedic Progress Note ---
Orthopedic Progress Note Date of Service Dec 20, 2016. Subjective Post OP Day: 1 Reports: feeling well, pain controlled w PO medications, Denies: complaints, chest pain, SOB, nausea / vomiting, light headedness, calf pain Objective N/V intact, capillary refill less than 2 sec., dressing C/D/I, A&O x3 Sling in tact, Fingers mobile. Date Time Temp Pulse Resp B/P (MAP) Pulse Ox O2 Delivery O2 Flow Rate FiO2 12/20/16 07:52 36.8 71 22 124/60 (81) 91 Room Air 12/20/16 03:36 36.9 66 18 120/63 (82) 94 Room Air 12/20/16 00:00 Room Air 12/19/16 23:21 36.7 63 16 119/69 (86) 98 Room Air 12/19/16 21:12 107/62 (77) 12/19/16 19:50 36.6 62 18 109/50 (69) 95 Room Air 110/62 (78) 12/19/16 17:00 97 Room Air 12/19/16 16:10 Nasal Cannula 2.0 12/19/16 15:30 36.6 71 18 105/59 (74) 95 Nasal Cannula 2.0 12/19/16 14:30 36.8 79 19 129/79 (96) 98 Nasal Cannula 2.0 12/19/16 13:28 82 16 115/56 (75) 94 Room Air 12/19/16 12:24 76 16 119/71 (87) 97 Nasal Cannula 2.0 12/19/16 12:00 36.6 74 19 139/69 (92) 96 Nasal Cannula 2.0 12/19/16 11:35 36.8 72 16 115/68 (84) 96 Nasal Cannula 2.0 12/19/16 11:35 Nasal Cannula 2.0 12/19/16 11:35 96 Nasal Cannula 2.0 12/19/16 11:26 36.6 12/19/16 11:24 75 14 12/19/16 11:24 75 14 99 12/19/16 11:22 107/62 12/19/16 11:19 74 18 12/19/16 11:19 74 18 99 12/19/16 11:17 160/72 12/19/16 11:14 74 21 12/19/16 11:14 72 21 99 12/19/16 11:13 71 18 12/19/16 11:13 70 18 99 12/19/16 11:12 147/60 12/19/16 11:08 69 20 12/19/16 11:08 68 20 99 12/19/16 11:07 149/51 12/19/16 11:03 70 17 12/19/16 11:03 70 17 99 12/19/16 11:02 148/50 12/19/16 10:58 70 17 12/19/16 10:58 69 17 99 12/19/16 10:57 70 20 137/79 99 12/19/16 10:57 70 20 12/19/16 10:52 70 19 12/19/16 10:52 70 19 149/61 100 12/19/16 10:47 71 18 100 12/19/16 10:47 70 18 12/19/16 10:46 150/66 12/19/16 10:44 71 18 12/19/16 10:44 71 18 100 12/19/16 10:42 140/84 12/19/16 10:39 71 16 100 12/19/16 10:39 71 16 12/19/16 10:36 150/57 12/19/16 10:35 142/64 12/19/16 10:34 36.3 73 16 142/64 100 Mask 10 Laboratory Results 24 Hours: Test 12/20/16 05:37 Hematocrit 32.4 % Hemoglobin 11.0 g/dL Assessment & Plan Assessment: POD #1 Right shoulder TSA, DCE, biceps tenodesis Plan: PT/ OT DVT proph- ASA D/C plans- OPPT As per medicine Inhouse Planning Pain Management: Oxycontin, Morphine, PO Tylenol, Oxy IR DVT Prophylaxis: SCDs, ASA Discharge Planning Discharge Planning: home with oppt Pain Management: Oxycontin, PO Tylenol, Oxy IR DVT Prophylaxis: ASA Therapy: Physical Therapy, Occupational Therapy
--- NOTE | 2016-12-20 08:27 | Anesthesiology Progress Note ---
Anesthesia Post Op Note Date & Time Dec 20, 2016 at 08:24 Vital Signs Pain Intensity: 7 Vital Signs Past 12 Hours Date Time Temp Pulse Resp B/P (MAP) Pulse Ox O2 Delivery O2 Flow Rate FiO2 12/20/16 08:14 91 Room Air 12/20/16 07:52 36.8 71 22 124/60 (81) 91 Room Air 12/20/16 03:36 36.9 66 18 120/63 (82) 94 Room Air 12/20/16 00:00 Room Air 12/19/16 23:21 36.7 63 16 119/69 (86) 98 Room Air 12/19/16 21:12 107/62 (77) Notes Mental Status: alert / awake / arousable Pt Amnestic to Procedure: Yes Nausea / Vomiting: adequately controlled Pain: see Notes (pt ) pt is c/o pain that is unresolved with current treatment of IV morphine, oxycodone and oxycontin; Nurse states that he refused pain medication when nerve block was wearing off and thinks they are just behind on pain coverage; Surgeon was made aware during morning rounds
[2016-12-20] MEDS: POTASSIUM CHLORIDE INJ 10 MEQ in SODIUM CHLORIDE 0.9% 1000ML 1,000 ML IV SCH (08:34)
[2016-12-20] MEDS: MULTIVITAMIN TAB PO SCH (08:45)
[2016-12-20] MEDS: OXYCODONE HCL 10 MG TABCR (OXYCONTIN) PO SCH ×2 (08:45→21:28)
[2016-12-20] MEDS: DOCUSATE SODIUM 100 MG CAP PO SCH ×2 (08:46→21:06)
[2016-12-20] MEDS: LISINOPRIL 40 MG TAB PO SCH ×2 (08:46→21:07)
[2016-12-20] MEDS: ASPIRIN 81 MG ECTAB PO SCH ×2 (08:46→21:06)
[2016-12-20] MEDS: BRINZOLAMIDE (AZOPT) OPS 10 ML BTL OPR SCH ×2 (08:47→21:06)
[2016-12-20] MEDS: GEMFIBROZIL 600 MG TAB PO SCH ×2 (08:47→21:06)
[2016-12-20] MEDS: PrednisoLONE ACET 1% OP SUSP 5 ML BTL OPL SCH ×3 (08:47→21:05)
[2016-12-20] MEDS: PANTOprazole SOD 40 MG TAB PO SCH (08:47)
[2016-12-20] MEDS: INSULIN ASPART 100 UNITS/ML 3 ML PEN SC SCH ×4 (08:53→21:32)
--- NOTE | 2016-12-20 11:07 | Progress Note ---
Subjective Date of Service: Dec 20, 2016. Subjective Pt evaluation today including: conversation w/ patient, physical exam, chart review, lab review, review of studies, review of inpatient medication list Voiding: no voiding problems After the chair, complaining about significant right shoulder pain, poor sleep last night because of pain. Report feeling woozy and afraid to be up and walk, require to people to help in and out of bed Review of Systems Constitutional: + fatigue (whole body ache), No fever, No chills, No sweats, No weight loss, No weakness, No problem reported Eyes: No worsening of vision, No eye pain, No redness, No discharge, No diplopia ENT: No hearing loss, No unusual epistaxis, No nasal symptoms, No sore throat, No tinnitus, No dental problems, No trouble swallowing Respiratory: No cough, No sputum, No wheezing, No shortness of breath, No dyspnea on exertion, No dyspnea at rest, No hemoptysis Cardiac: No chest pain, No orthopnea, No PND, No edema, No claudication, No palpitations Abdomen: No pain, No nausea, No vomiting, No diarrhea, No constipation Musculoskeletal: No joint pain, No muscle pain, No swelling, No calf pain Male : No dysuria, No urinary frequency, No incontinence, No nocturia more than once/night, No slowing stream, No hematuria Neurologic: No memory loss, No paralysis, No weakness, No numbness/tingling, No vertigo, No balance problems Psychiatric: No depression symptoms, No anhedonism, No anxiety, No insomnia, No substance abuse Heme: No abnormal bleeding/bruising, No clotting problems, No swollen lymph nodes, No night sweats Endo: No fatigue, No excessive thirst, No excessive urination Skin: No rash, No itch, No new/changing skin lesions, No color change, No bleeding Objective Vital Signs Date Time Temp Pulse Resp B/P (MAP) Pulse Ox O2 Delivery O2 Flow Rate FiO2 12/20/16 08:36 91 Room Air 12/20/16 08:14 91 Room Air 12/20/16 07:52 36.8 71 22 124/60 (81) 91 Room Air 12/20/16 03:36 36.9 66 18 120/63 (82) 94 Room Air 12/20/16 00:00 Room Air 12/19/16 23:21 36.7 63 16 119/69 (86) 98 Room Air 12/19/16 21:12 107/62 (77) 12/19/16 19:50 36.6 62 18 109/50 (69) 95 Room Air 110/62 (78) 12/19/16 17:00 97 Room Air 12/19/16 16:10 Nasal Cannula 2.0 12/19/16 15:30 36.6 71 18 105/59 (74) 95 Nasal Cannula 2.0 12/19/16 14:30 36.8 79 19 129/79 (96) 98 Nasal Cannula 2.0 12/19/16 13:28 82 16 115/56 (75) 94 Room Air 12/19/16 12:24 76 16 119/71 (87) 97 Nasal Cannula 2.0 12/19/16 12:00 36.6 74 19 139/69 (92) 96 Nasal Cannula 2.0 12/19/16 11:35 36.8 72 16 115/68 (84) 96 Nasal Cannula 2.0 12/19/16 11:35 Nasal Cannula 2.0 12/19/16 11:35 96 Nasal Cannula 2.0 12/19/16 11:26 36.6 12/19/16 11:24 75 14 12/19/16 11:24 75 14 99 12/19/16 11:22 107/62 12/19/16 11:19 74 18 12/19/16 11:19 74 18 99 12/19/16 11:17 160/72 12/19/16 11:14 74 21 12/19/16 11:14 72 21 99 12/19/16 11:13 71 18 12/19/16 11:13 70 18 99 12/19/16 11:12 147/60 12/19/16 11:08 69 20 12/19/16 11:08 68 20 99 12/19/16 11:07 149/51 12/19/16 11:03 70 17 12/19/16 11:03 70 17 99 12/19/16 11:02 148/50 Physical Exam General Appearance: WD/WN, no apparent distress, + obese Eyes: normal inspection, PERRL, EOMI, sclerae normal ENT: normal ENT inspection, hearing grossly normal, pharynx normal Neck: supple, no adenopathy, thyroid normal, no JVD, no carotid bruits, trachea midline Respiratory/Chest: chest non-tender, normal breath sounds, no respiratory distress, no accessory muscle use, + decreased breath sounds Cardiovascular: regular rate, rhythm, no edema, no gallop, no JVD, no murmur Abdomen: normal bowel sounds, non tender, soft, no organomegaly, no pulsatile mass Extremities: non-tender, normal inspection, no pedal edema, no calf tenderness , normal capillary refill, pelvis stable, + pertinent finding (right shoulder in sling, right fingers normal movement cap Refill normal) Neurologic/Psychiatric: 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, no motor/sensory deficits, alert, normal mood/affect, oriented x 3, + abnormal cerebellar tests Skin: normal color, warm/dry, no rash Lymphatic: no adenopathy Laboratory Results Last 24 Hours Test 12/19/16 12:06 12/19/16 17:03 12/19/16 21:08 12/20/16 05:37 Bedside Glucose 154 mg/dl 169 mg/dl 194 mg/dl White Blood Count 10.49 K/uL Red Blood Count 3.66 M/uL Hemoglobin 11.0 g/dL Hematocrit 32.4 % Mean Corpuscular Volume 88.5 fL Mean Corpuscular Hemoglobin 30.1 pg Mean Corpuscular Hemoglobin Concent 34.0 g/dl RDW Standard Deviation 44.5 fL RDW Coefficient of Variation 13.7 % Platelet Count 226 K/uL Mean Platelet Volume 9.5 fL Sodium Level 138 mmol/L Potassium Level 3.7 mmol/L Chloride Level 105 mmol/L Carbon Dioxide Level 26 mmol/L Anion Gap 7.0 mmol/L Blood Urea Nitrogen 37 mg/dl Creatinine 1.60 mg/dl Est Creatinine Clear Calc Drug Dose 47.5 ml/min Estimated GFR () 50.6 Estimated GFR (Non- 43.6 BUN/Creatinine Ratio 22.8 Random Glucose 164 mg/dl Calcium Level 8.4 mg/dl Hepatitis C Antibody Screen NEG Test 12/20/16 08:04 Bedside Glucose 189 mg/dl Assessment and Plan 66-year-old white male admitted to orthopedic service hospitalist consulted for medical management status post right total shoulder arthroplasty, POD 1, pain management, rehabilitation, PT OT, discharge plan will be per primary team Diabetes mellitus: Stable continue Lantus [address] on Accu-Cheks before meals and at bedtime with NovoLog coverage per scale. Hypertension: Stable , continue home medications are HCTZ 50 mg by mouth daily and lisinopril 40 mg by mouth twice a day. Due to present low blood pressure, has hold HCTZ, and cut lisinopril to 20 mg by mouth twice a day with hold parameters. Hyperlipidemia--continue atorvastatin 10 mg by mouth daily and gemfibrozil 600 mg by mouth twice a day. Insomnia--continue trazodone 100 mg by mouth at bedtime. Feeling woozy and possible balance problem, I believe it is from the side effect of pain medicine, he has no facial droop, he is awake and alert and orientated conversational, and he moves upper and lower extremities, no local deficits, I believe for now we don't need to worry about CVA Has notified nurse to report to primary team about patient's poor pain control Continued [facility] stay due to: multiple IV medications needed Discharge planning: home
[2016-12-20] MEDS: CHOLECALCIFEROL 1000 INTER.UNIT TAB PO SCH (21:06)
[2016-12-20] MEDS: TRAZODONE HCL 100 MG TAB PO SCH (21:06)
[2016-12-20] MEDS: ATORVASTATIN 10 MG TAB PO SCH (21:06)
[2016-12-20] MEDS: INSULIN GLARGINE SOLOSTAR 100 UNITS/ML 3 ML PEN SC SCH (21:30)
[2016-12-21] MEDS: ACETAMINOPHEN 500 MG TAB PO SCH ×3 (05:40→22:09)
[2016-12-21 06:02] LABS: MEAN CELL VOLUME 87.3 fL (80-100); MEAN CORPUSCULAR HEMOGLOBIN 29.9 pg (25-34); MEAN CORPUSCULAR HGB CONC 34.2 g/dl (32-36); MEAN PLATELET VOLUME 9.5 fL (7.4-10.4); PLATELET COUNT 219 K/uL (130-400); RED BLOOD COUNT 3.55 M/uL (4.7-6.1); WHITE BLOOD COUNT 10.24 K/uL (4.8-10.8)
[2016-12-21 06:40] LABS: BUN/CREATININE RATIO 21.3 (10-20); CALCIUM 8.6 mg/dl (8.5-10.1); CREATININE 1.5 mg/dl (0.60-1.40); MAGNESIUM 2.2 mg/dl (1.8-2.4); POTASSIUM 3.8 mmol/L (3.5-5.1)
[2016-12-21 07:00] VITALS: BP 154/68; PULSE 69; TEMP 36.9; O2SAT 91
[2016-12-21 07:36] VITALS: BP_SYST 116; BP_SYST 126; BP_SYST 132; BP_DIAS 63; BP_DIAS 70; PULSE 72; PULSE 76; PULSE 80
--- NOTE | 2016-12-21 07:39 | Orthopedic Progress Note ---
Orthopedic Progress Note Date of Service Dec 21, 2016. Subjective Post OP Day: 2 Reports: pain controlled w PO medications, Denies: chest pain, SOB, nausea / vomiting, light headedness, calf pain Additional Notes: States pain is much better today in the shoulder, states tylenol working best. Still having "balance" issues, did poorly with ambulation, states he is not dizzy but cant get his coordination corrected, thinks it is the pain meds. Objective N/V intact, capillary refill less than 2 sec., incision C/D/I Sling in tact, fingers mobile. Patient somewhat confused but was sleeping at first, once he was awake for a few minutes he regained his orientation. Date Time Temp Pulse Resp B/P (MAP) Pulse Ox O2 Delivery O2 Flow Rate FiO2 12/21/16 07:00 36.9 69 17 154/68 (96) 91 Room Air 12/20/16 23:21 160/66 (97) 145/66 (92) 12/20/16 22:45 36.9 74 18 149/73 (98) 92 Room Air 12/20/16 21:00 147/72 (97) 12/20/16 19:40 Room Air 12/20/16 15:20 36.8 62 18 137/70 (92) 93 Room Air 12/20/16 14:48 68 129/71 (90) 67 128/73 (91) 71 147/72 (97) 12/20/16 08:36 91 Room Air 12/20/16 08:14 91 Room Air 12/20/16 07:52 36.8 71 22 124/60 (81) 91 Room Air Laboratory Results 24 Hours: Test 12/21/16 05:28 Hematocrit 31.0 % Hemoglobin 10.6 g/dL Assessment & Plan Assessment: POD #2 Right shoulder TSA, DCE, biceps tenodesis Plan: PT/ OT DVT proph- ASA D/C plans- OPPT when ambulating safely- will stop narcs. As per medicine Inhouse Planning Pain Management: Oxycontin, Morphine, PO Tylenol, Oxy IR DVT Prophylaxis: SCDs, ASA Discharge Planning Discharge Planning: home with oppt Pain Management: Oxycontin, PO Tylenol, Oxy IR DVT Prophylaxis: ASA Therapy: Physical Therapy, Occupational Therapy
--- NOTE | 2016-12-21 07:41 | Discharge Instructions ---
Discharge Instructions Date of Service Dec 21, 2016. Admission Reason for Admission: Right Shoulder Degenerative Arthritis Discharge Discharge Diagnosis / Problem: Right shoulder TSA, DCE, biceps tenodesis Discharge Goals Goal(s): Improve function Activity Recommendations Activity Limitations: as noted below . Instructions / Follow-Up Instructions / Follow-Up ACTIVITY RECOMMENDATIONS: SELF CARE INSTRUCTIONS AFTER TOTAL SHOULDER ARTHROPLASTY A. You may do daily exercises as taught in physical therapy while in hospital. No lifting with the operative arm. Please schedule your outpatient physical therapy appointment to begin within 2-3 days after leaving the hospital. Specific restrictions will be written on your physical therapy prescription that is provided to you. B. You are to wear your sling/immobilizer at all times EXCEPT when performing your daily exercises, participating in physical therapy and for hygiene purposes. C. You may perform dry, daily dressing changes. Please keep your incision covered. You may shower 48 hours after surgery. Do not apply soap or any ointment/ lotions directly over incision. Do not soak incision in bath tub/swimming pool. D. You may use ice as needed to operative shoulder. SPECIAL CARE INSTRUCTIONS: MEDICATION INSTRUCTIONS: *It is recommended you take Aspirin 325mg daily for four weeks post-op. VERY IMPORTANT TO READ AND REVIEW A. There are a few signs you need to watch for after you are home. Call [facility] at [phone] if you experience any of the followin. Increased severe shoulder pain. Some pain is expected especially when you exercise. 2. Increased swelling in you shoulder or arm; pain or swelling in either upper extremity. 3. Any fluid drainage from the incision. 4. Shortness of breath or chest pain. B. Please call [facility] at [phone] if you have any questions or concerns about your operation or recovery. C. Call your physician if: 1. Temperature is greater than 101 degrees (F). 2. Pain is not relieved by prescribed pain medications. 3. Increase drainage or redness from incision. 4. Unanswered questions or concerns. FOLLOW UP VISIT: Please call [facility] at [phone] to schedule a follow up appointment with Dr. Acosta or his PA in 12-14 days from your surgery date. Current Hospital Diet Patient's current hospital diet: Diabetes Type 2 Diet Discharge Diet Recommended Diet: Diabetes Type 2 Diet Procedures Procedures Performed: Right Total Shoulder Arthroplasty with Distal Clavicle Excision and Biceps Tenodesis Pending Studies Studies pending at discharge: no Laboratory Results Hemoglobin A1c Test 11/05/16 16:57 Range/Units Estimated Average Glucose 177 mg/dl Hemoglobin A1c 7.8 H 4.5-5.6 % Medical Emergencies . Who to Call and When: Medical Emergencies: If at any time you feel your situation is an emergency, please call 911 immediately. . Non-Emergent Contact Non-Emergency issues call your: Primary Care Provider . "Provider Documentation" section prepared by Brodie Isabel. . VTE Core Measure Inpt VTE Proph given/why not?: Other Anticoagulation (asa), T.E.D. Stockings, SCD's [place] Drug Monitoring Program Search Results: patient reviewed within database, no issues identified
[2016-12-21] MEDS ORDERED: TRAMADOL HCL 50 MG TAB PO PRN (07:45)
[2016-12-21] MEDS: MULTIVITAMIN TAB PO SCH (08:41)
[2016-12-21] MEDS: BRINZOLAMIDE (AZOPT) OPS 10 ML BTL OPR SCH ×2 (08:41→20:21)
[2016-12-21] MEDS: PrednisoLONE ACET 1% OP SUSP 5 ML BTL OPL SCH ×3 (08:41→20:21)
[2016-12-21] MEDS: ASPIRIN 81 MG ECTAB PO SCH ×2 (08:42→20:22)
[2016-12-21] MEDS: DOCUSATE SODIUM 100 MG CAP PO SCH ×2 (08:42→20:22)
[2016-12-21] MEDS: PANTOprazole SOD 40 MG TAB PO SCH (08:42)
[2016-12-21] MEDS: GEMFIBROZIL 600 MG TAB PO SCH ×2 (08:42→20:23)
[2016-12-21] MEDS: LISINOPRIL 40 MG TAB PO SCH ×2 (08:42→20:24)
[2016-12-21] MEDS: INSULIN ASPART 100 UNITS/ML 3 ML PEN SC SCH ×4 (08:49→22:11)
[2016-12-21] MEDS: MAGNESIUM HYDROXIDE SUSP 30 ML UDC PO PRN ×2 (12:57→20:21)
--- NOTE | 2016-12-21 13:33 | Progress Note ---
Subjective Date of Service: Dec 21, 2016. Subjective Pt evaluation today including: conversation w/ patient, physical exam, chart review, lab review, review of studies, conversation w/ pmo consultant, review of inpatient medication list Report feeling better, pain is much better controlled, conversational, no more complaint of balance problem, concern possible poor controlled blood glucose, he reported with did not give enough insulin for his blood glucose Review of Systems Constitutional: No fever, No chills, No sweats, No weight loss, No weakness, No fatigue, No problem reported Eyes: No worsening of vision, No eye pain, No redness, No discharge, No diplopia ENT: No hearing loss, No unusual epistaxis, No nasal symptoms, No sore throat, No tinnitus, No dental problems, No trouble swallowing Respiratory: No cough, No sputum, No wheezing, No shortness of breath, No dyspnea on exertion, No dyspnea at rest, No hemoptysis Cardiac: No chest pain, No orthopnea, No PND, No edema, No claudication, No palpitations Abdomen: No pain, No nausea, No vomiting, No diarrhea, No constipation Musculoskeletal: + joint pain, No muscle pain, No swelling, No calf pain Male : No dysuria, No urinary frequency, No incontinence, No nocturia more than once/night, No slowing stream, No hematuria Neurologic: No memory loss, No paralysis, No weakness, No numbness/tingling, No vertigo, No balance problems Psychiatric: No depression symptoms, No anhedonism, No anxiety, No insomnia, No substance abuse Heme: No abnormal bleeding/bruising, No clotting problems, No swollen lymph nodes, No night sweats Endo: No fatigue, No excessive thirst, No excessive urination Skin: No rash, No itch, No new/changing skin lesions, No color change, No bleeding Objective Vital Signs Date Time Temp Pulse Resp B/P (MAP) Pulse Ox O2 Delivery O2 Flow Rate FiO2 12/21/16 07:36 72 126/63 (84) 76 116/63 (80) 80 132/70 (90) 12/21/16 07:30 Room Air 12/21/16 07:00 36.9 69 17 154/68 (96) 91 Room Air 12/20/16 23:21 160/66 (97) 145/66 (92) 12/20/16 22:45 36.9 74 18 149/73 (98) 92 Room Air 12/20/16 21:00 147/72 (97) 12/20/16 19:40 Room Air 12/20/16 15:20 36.8 62 18 137/70 (92) 93 Room Air 12/20/16 14:48 68 129/71 (90) 67 128/73 (91) 71 147/72 (97) Physical Exam General Appearance: WD/WN, no apparent distress, + obese Eyes: normal inspection, PERRL, EOMI, sclerae normal ENT: normal ENT inspection, hearing grossly normal, pharynx normal Neck: supple, no adenopathy, thyroid normal, no JVD, no carotid bruits, trachea midline Respiratory/Chest: chest non-tender, lungs clear, normal breath sounds, no respiratory distress, no accessory muscle use Cardiovascular: regular rate, rhythm, no edema, no gallop, no JVD, no murmur Abdomen: normal bowel sounds, non tender, soft, no organomegaly, no pulsatile mass Extremities: non-tender, normal inspection, no pedal edema, no calf tenderness , normal capillary refill, pelvis stable, + pertinent finding (right shoulder sling, right fingers no swelling, pulse positive in right wrist, capillary refill was normal) 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/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, no motor/sensory deficits, alert, normal mood/affect, oriented x 3 Skin: normal color, warm/dry, no rash Lymphatic: no adenopathy Laboratory Results Last 24 Hours Test 12/20/16 16:55 12/20/16 21:18 12/21/16 05:28 12/21/16 08:02 Bedside Glucose 248 mg/dl 213 mg/dl 196 mg/dl White Blood Count 10.24 K/uL Red Blood Count 3.55 M/uL Hemoglobin 10.6 g/dL Hematocrit 31.0 % Mean Corpuscular Volume 87.3 fL Mean Corpuscular Hemoglobin 29.9 pg Mean Corpuscular Hemoglobin Concent 34.2 g/dl RDW Standard Deviation 43.6 fL RDW Coefficient of Variation 13.5 % Platelet Count 219 K/uL Mean Platelet Volume 9.5 fL Sodium Level 135 mmol/L Potassium Level 3.8 mmol/L Chloride Level 103 mmol/L Carbon Dioxide Level 25 mmol/L Anion Gap 7.0 mmol/L Blood Urea Nitrogen 32 mg/dl Creatinine 1.50 mg/dl Est Creatinine Clear Calc Drug Dose 50.7 ml/min Estimated GFR () 54.7 Estimated GFR (Non- 47.2 BUN/Creatinine Ratio 21.3 Random Glucose 185 mg/dl Calcium Level 8.6 mg/dl Magnesium Level 2.2 mg/dl Test 12/21/16 10:26 12/21/16 11:49 Bedside Glucose 232 mg/dl 213 mg/dl Assessment and Plan 66-year-old white male admitted to orthopedic service hospitalist consulted for medical management status post right total shoulder arthroplasty, POD 2, pain management, rehabilitation, PT OT, discharge plan will be per primary team Diabetes mellitus With elevated blood glucose continue Lantus 100 units subcutaneous daily. Has tightened sliding-scale coverage, and pharmacist consult for blood glucose management Hypertension: Stable , Continue current medication Hyperlipidemia--continue atorvastatin 10 mg by mouth daily and gemfibrozil 600 mg by mouth twice a day. Insomnia--continue trazodone 100 mg by mouth at bedtime. We'll continue follow-up Continued [facility] stay due to: multiple IV medications needed Discharge planning: home
[2016-12-21 15:21] VITALS: BP_SYST 118; BP_SYST 122; BP_SYST 134; BP_DIAS 65; BP_DIAS 69; BP_DIAS 73; PULSE 60; TEMP 36.9; O2SAT 94
[2016-12-21] MEDS: ATORVASTATIN 10 MG TAB PO SCH (20:23)
[2016-12-21] MEDS: CHOLECALCIFEROL 1000 INTER.UNIT TAB PO SCH (20:23)
[2016-12-21 20:25] VITALS: BP 132/67; PULSE 61
[2016-12-21] MEDS: TRAZODONE HCL 100 MG TAB PO SCH (22:09)
[2016-12-21] MEDS: INSULIN GLARGINE SOLOSTAR 100 UNITS/ML 3 ML PEN SC SCH (22:12)
[2016-12-21 23:13] VITALS: BP 152/76; PULSE 72; TEMP 37; O2SAT 92
[2016-12-22] MEDS: ACETAMINOPHEN 500 MG TAB PO SCH (06:09)
[2016-12-22 07:51] VITALS: BP 147/76; PULSE 68; TEMP 36.5; O2SAT 94
--- NOTE | 2016-12-22 08:44 | Progress Note ---
Orthopedic SOAP Note Subjective Date of Service: Dec 22, 2016. Reports: feeling well, pain controlled w PO medications Additional Notes: mental status clear today,feels better off narcotics Objective N/V intact, dressing C/D/I, incision C/D/I Date Time Temp Pulse Resp B/P (MAP) Pulse Ox O2 Delivery O2 Flow Rate FiO2 12/22/16 08:07 Room Air 12/22/16 07:51 36.5 68 16 147/76 (99) 94 Room Air 12/21/16 23:40 Room Air 12/21/16 23:13 37.0 72 18 152/76 (101) 92 Room Air 12/21/16 20:25 61 132/67 (88) 12/21/16 16:30 Room Air 12/21/16 15:21 36.9 60 18 134/73 (93) 94 Room Air 122/69 (86) 118/65 (82) Assessment POD #3 Right shoulder TSA, DCE, biceps tenodesis Plan PT/ OT DVT proph- ASA D/C plans- home today
[2016-12-22] MEDS: BRINZOLAMIDE (AZOPT) OPS 10 ML BTL OPR SCH (08:45)
[2016-12-22] MEDS: PrednisoLONE ACET 1% OP SUSP 5 ML BTL OPL SCH (08:45)
[2016-12-22] MEDS: PANTOprazole SOD 40 MG TAB PO SCH (08:46)
[2016-12-22] MEDS: MULTIVITAMIN TAB PO SCH (08:46)
[2016-12-22] MEDS: ASPIRIN 81 MG ECTAB PO SCH (08:46)
[2016-12-22] MEDS: LISINOPRIL 40 MG TAB PO SCH (08:46)
[2016-12-22] MEDS: GEMFIBROZIL 600 MG TAB PO SCH (08:46)
[2016-12-22] MEDS: DOCUSATE SODIUM 100 MG CAP PO SCH (08:47)
[2016-12-22] MEDS ORDERED: ULT50X PO (08:50)
[2016-12-22] MEDS ORDERED: ACET-1256 PO (08:50)
[2016-12-22] MEDS: INSULIN ASPART 100 UNITS/ML 3 ML PEN SC SCH ×2 (08:51→12:40)
[2016-12-22 09:43] VITALS: BP 147/76; PULSE 68; TEMP 36.5; O2SAT 94
--- NOTE | 2016-12-22 10:33 | Progress Note ---
Subjective Date of Service: Dec 22, 2016. Subjective Pt evaluation today including: conversation w/ patient, physical exam, chart review, lab review, review of studies, conversation w/ health analytics consultant, review of inpatient medication list Feeling good, up and walk and ready to go home Review of Systems Constitutional: No fever, No chills, No sweats, No weight loss, No weakness, No fatigue, No problem reported Eyes: No worsening of vision, No eye pain, No redness, No discharge, No diplopia ENT: No hearing loss, No unusual epistaxis, No nasal symptoms, No sore throat, No tinnitus, No dental problems, No trouble swallowing Respiratory: No cough, No sputum, No wheezing, No shortness of breath, No dyspnea on exertion, No dyspnea at rest, No hemoptysis Cardiac: No chest pain, No orthopnea, No PND, No edema, No claudication, No palpitations Abdomen: No pain, No nausea, No vomiting, No diarrhea, No constipation Musculoskeletal: + joint pain (is better controlled), No muscle pain, No swelling, No calf pain Male : No dysuria, No urinary frequency, No incontinence, No nocturia more than once/night, No slowing stream, No hematuria Neurologic: No memory loss, No paralysis, No weakness, No numbness/tingling, No vertigo, No balance problems Psychiatric: No depression symptoms, No anhedonism, No anxiety, No insomnia, No substance abuse Heme: No abnormal bleeding/bruising, No clotting problems, No swollen lymph nodes, No night sweats Endo: No fatigue, No excessive thirst, No excessive urination Skin: No rash, No itch, No new/changing skin lesions, No color change, No bleeding Objective Vital Signs Date Time Temp Pulse Resp B/P (MAP) Pulse Ox O2 Delivery O2 Flow Rate FiO2 12/22/16 09:43 36.5 68 16 94 Room Air 12/22/16 08:07 Room Air 12/22/16 07:51 36.5 68 16 147/76 (99) 94 Room Air 12/21/16 23:40 Room Air 12/21/16 23:13 37.0 72 18 152/76 (101) 92 Room Air 12/21/16 20:25 61 132/67 (88) 12/21/16 16:30 Room Air 12/21/16 15:21 36.9 60 18 134/73 (93) 94 Room Air 122/69 (86) 118/65 (82) Physical Exam General Appearance: WD/WN, no apparent distress Eyes: normal inspection, PERRL, EOMI, sclerae normal ENT: normal ENT inspection, hearing grossly normal, pharynx normal Neck: supple, no adenopathy, thyroid normal, no JVD, no carotid bruits, trachea midline Respiratory/Chest: chest non-tender, lungs clear, normal breath sounds, no respiratory distress, no accessory muscle use Cardiovascular: regular rate, rhythm, no edema, no gallop, no JVD, no murmur Abdomen: normal bowel sounds, non tender, soft, no organomegaly, no pulsatile mass Extremities: normal inspection, no pedal edema, no calf tenderness, normal capillary refill, pelvis stable, + inflammation (right shoulder in sling, fingers movement is good. 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 tested, no motor/sensory deficits, alert, normal mood/affect, oriented x 3, + abnormal cerebellar tests Skin: normal color, warm/dry, no rash Lymphatic: no adenopathy Laboratory Results Last 24 Hours Test 12/21/16 11:49 12/21/16 17:00 12/21/16 20:53 12/22/16 08:07 Bedside Glucose 213 mg/dl 175 mg/dl 197 mg/dl 146 mg/dl Assessment and Plan 66-year-old white male admitted to orthopedic service hospitalist consulted for medical management status post right total shoulder arthroplasty, POD 2, pain management, rehabilitation, PT OT, discharge plan will be per primary team Diabetes mellitus With elevated blood glucose continue Lantus 100 units subcutaneous daily. Has tightened sliding-scale coverage, and pharmacist consult for blood glucose management Hypertension: Stable , Continue current medication Hyperlipidemia--continue atorvastatin 10 mg by mouth daily and gemfibrozil 600 mg by mouth twice a day. Insomnia--continue trazodone 100 mg by mouth at bedtime. Has otherwise patient to follow-up with PCP for all medical conditions Continued [facility] stay due to: multiple IV medications needed Discharge planning: home
--- NOTE | 2017-01-04 11:25 | DISCHARGE SUMMARY ---
HISTORY OF PRESENT ILLNESS: This is a 66-year-old male patient of Dr. Acosta's, complaining of chronic right shoulder pain, longstanding, progressively getting worse. The patient was diagnosed with end-stage osteoarthritis per clinical and radiographic exam and wished to proceed with a right total shoulder arthroplasty. PAST MEDICAL HISTORY: Hypertension, hypercholesterolemia, diabetes mellitus, osteoarthritis and obesity. POSTOPERATIVE COURSE: The patient underwent a right total shoulder arthroplasty, biceps tenodesis and distal clavicle excision on 12/19/2016. Postoperatively, he was followed closely with medical consultation, physical therapy and pain control. The patient did have some balance issues postoperative day 1 and on day 2. Postop day 2, his narcotic medications were all stopped as he felt the balance and coordination issues were due to the narcotic medications. On postoperative day #3, his mental status was clear. He felt much better off the narcotics and stated that Tylenol was sufficient for his pain control. Otherwise, the patient had an uneventful postoperative course and was discharged on postoperative day #3. PHYSICAL EXAMINATION: On discharge, right shoulder incision was clean, dry and intact. [place] were intact. Skin edges were approximated well. There was no redness or drainage. Neurologically and neurovascularly, he was intact in his right upper extremity. DIAGNOSIS: Status post right total shoulder arthroplasty with a history of hypertension; hypercholesterolemia; diabetes mellitus, on insulin; osteoarthritis; and obesity. PLAN: The patient was discharged home with outpatient physical therapy. He will continue his preadmission medications with the addition of pain medications. He will up with Dr. Acosta as scheduled as an outpatient.
== END 2016-12-22 13:08 | disposition home or self-care (01) | DRG 483 ==
LOC: C.ACU 05:17 → C.3E 07:00 → ENRESERV 11:03
PROVIDERS: ADMIT Orthopaedic Surgery Sports Medicine; ATTEND Orthopaedic Surgery Sports Medicine
PROC: 0PB90ZZ Excision of Right Clavicle, Open Approach (ICD-10-PCS; principal; 2016-12-19 07:00)
PROC: 0RRJ0JZ Replacement of Right Shoulder Joint with Synthetic Substitute, Open Approach (ICD-10-PCS; principal; 2016-12-19 07:00)
DX: M19.011 Primary osteoarthritis, right shoulder (principal); M75.21 Bicipital tendinitis, right shoulder; M75.101 Unspecified rotator cuff tear or rupture of right shoulder, not specified as traumatic; I10 Essential (primary) hypertension; E78.00 Pure hypercholesterolemia, unspecified; E11.9 Type 2 diabetes mellitus without complications; E66.9 Obesity, unspecified; G47.00 Insomnia, unspecified; Z79.4 Long term (current) use of insulin; Z79.899 Other long term (current) drug therapy; Z79.82 Long term (current) use of aspirin

== ENCOUNTER → 2017-02-13 | Outpatient (CLI) | payer BC ==
[~2017-02-13] MED LIST changes: +ACET-1256 PO; +MULT-506 PO; +ULT50X PO
[2017-02-13 13:06] LABS: HEMATOCRIT 36.6 % (42-52); MEAN CELL VOLUME 88.4 fL (80-100); MEAN CORPUSCULAR HEMOGLOBIN 30.2 pg (25-34); MEAN CORPUSCULAR HGB CONC 34.2 g/dl (32-36); MEAN PLATELET VOLUME 9.8 fL (7.4-10.4); PLATELET COUNT 264 K/uL (130-400); RED BLOOD COUNT 4.14 M/uL (4.7-6.1); WHITE BLOOD COUNT 8.18 K/uL (4.8-10.8)
[2017-02-13 13:28] LABS: URINE APPEARANCE CLEAR (CLEAR); URINE BILIRUBIN NEG (NEG); URINE COLOR YELLOW; URINE EPITHELIAL CELL AUTO 0-5 /lpf (0-5); URINE NITRITE NEG (NEG); URINE PH 6.5 (4.5-7.5); URINE SPECIFIC GRAVITY 1.011 (1.000-1.030); UROBILINOGEN NEG (NEG)
[2017-02-13 13:31] LABS: MANUAL MICROSCOPIC REQUIRED? NO; REVIEW REQ? NO
[2017-02-13 13:32] LABS: BLOOD UREA NITROGEN 32 mg/dl (7-18); CALCIUM 9.3 mg/dl (8.5-10.1); CARBON DIOXIDE 22 mmol/L (21-32); CHLORIDE 105 mmol/L (98-107); GLUCOSE 171 mg/dl (70-99); PHOSPHORUS 3.2 mg/dl (2.5-4.9); POTASSIUM 3.6 mmol/L (3.5-5.1); SODIUM 139 mmol/L (136-145)
[2017-02-13 13:36] LABS: ESTIMATED AVERAGE GLUCOSE 148 mg/dl; HA1C FLAG Normal (Normal)
[2017-02-13 14:27] LABS: URINE PROTIEN/CREAT RATIO 0.4 (0-0.2); URINE TOTAL PROTEIN 22.9 mg/dl (0-11.9)
--- NOTE | 2017-02-20 09:27 | CODING QUERY MEDICAL NECESSITY ---
SUPPORTING DIAGNOSIS NEEDED Dr. Byrnes, A supporting diagnosis is required for the test/procedure performed on this patient in order for us to be reimbursed by the patient's insurance. Please provide a supporting diagnosis for the following test/procedure listed below next to the test name along with your signature. *If there is no additional diagnosis for this patient that would support the following test/procedure please document that below next to the test/procedure. Test(s)/Procedure(s) that require a supporting diagnosis: * ([id number]) VITAMIN D ASSAY DIAGNOSIS: * [id number] GLYCATED HEMOGLOBIN DIAGNOSIS: DATE OF SERVICE: 02/13/17 Provider Signature: Date: Thank you Hugo [facility] Information Management Once completed, please kindly fax back to [phone] For questions please call [phone]
== END | disposition home or self-care (01) ==
LOC: C.LABPBG 09:36
PROVIDERS: ATTEND Internal Medicine Nephrology
DX: N18.2 Chronic kidney disease, stage 2 (mild) (principal); E55.9 Vitamin D deficiency, unspecified; E10.65 Type 1 diabetes mellitus with hyperglycemia; E10.22 Type 1 diabetes mellitus with diabetic chronic kidney disease

== ENCOUNTER → 2017-05-27 | Outpatient (CLI) | payer BC ==
[~2017-05-27] MED LIST changes: +ATOR10TA82 PO; -ATOR10TA88 PO
[2017-05-27 13:04] LABS: HEMATOCRIT 40.4 % (42-52)
[2017-05-27 13:23] LABS: HEMOGLOBIN A1C 8.1 % (4.5-5.6)
[2017-05-27 13:36] LABS: BLOOD UREA NITROGEN 26 mg/dl (7-18); CALCIUM 9.4 mg/dl (8.5-10.1); CARBON DIOXIDE 26 mmol/L (21-32); CHOLESTEROL 163 mg/dl (0-200); GLUCOSE 214 mg/dl (70-99); POTASSIUM 3.8 mmol/L (3.5-5.1); SODIUM 135 mmol/L (136-145)
[2017-05-27 13:46] LABS: LDL CHOLESTEROL CALCULATED 65 mg/dl
== END | disposition home or self-care (01) ==
LOC: C.LABPBG 09:01
PROVIDERS: ATTEND Nurse Practitioner Adult Health
DX: E78.5 Hyperlipidemia, unspecified (principal); R80.9 Proteinuria, unspecified; N28.9 Disorder of kidney and ureter, unspecified; E66.3 Overweight; Z68.25 Body mass index [BMI] 25.0-25.9, adult; E11.49 Type 2 diabetes mellitus with other diabetic neurological complication; Z79.4 Long term (current) use of insulin

== ENCOUNTER → 2017-08-20 | Outpatient (CLI) | payer BC ==
[2017-08-20 17:01] LABS: HEMATOCRIT 40.5 % (42-52); HEMOGLOBIN 14.1 g/dL (14.0-18.0); MEAN CELL VOLUME 85.6 fL (80-100); MEAN CORPUSCULAR HEMOGLOBIN 29.8 pg (25-34); MEAN CORPUSCULAR HGB CONC 34.8 g/dl (32-36); MEAN PLATELET VOLUME 9.8 fL (7.4-10.4); PLATELET COUNT 265 K/uL (130-400); RED CELL DISTRIBUTION WIDTH SD 40.7 fL (36.4-46.3); WHITE BLOOD COUNT 7.72 K/uL (4.8-10.8)
[2017-08-20 17:16] LABS: ALBUMIN 4.2 gm/dl (3.4-5.0); BLOOD UREA NITROGEN 29 mg/dl (7-18); CALCIUM 9.6 mg/dl (8.5-10.1); CARBON DIOXIDE 25 mmol/L (21-32); CREATININE 1.69 mg/dl (0.60-1.40); GLUCOSE 172 mg/dl (70-99); PHOSPHORUS 3.4 mg/dl (2.5-4.9); POTASSIUM 3.5 mmol/L (3.5-5.1); SODIUM 131 mmol/L (136-145)
== END | disposition home or self-care (01) ==
LOC: C.LABPBG 15:00
PROVIDERS: ATTEND Internal Medicine Nephrology
DX: I12.9 Hypertensive chronic kidney disease with stage 1 through stage 4 chronic kidney disease, or unspecified chronic kidney disease (principal); E55.9 Vitamin D deficiency, unspecified; R80.9 Proteinuria, unspecified; N18.2 Chronic kidney disease, stage 2 (mild)

== ENCOUNTER → 2017-12-05 | Outpatient (CLI) | payer BC ==
[~2017-12-05] MED LIST changes: +CHOL20009 PO; +CINN1CAP2 PO; +TRAZ50TA35 PO
[2017-12-05 17:28] LABS: BASO % 0.8 %; BASO ABS # 0.07 K/uL (0-0.2); EOS ABS # 0.26 K/uL (0-0.5); HEMATOCRIT 44.5 % (42-52); HEMOGLOBIN 15.5 g/dL (14.0-18.0); IG# 0.01 K/uL (0.00-0.02); LYMPH % 24.3 %; LYMPH ABS # 2.11 K/uL (1.2-3.4); MEAN CELL VOLUME 85.2 fL (80-100); MEAN CORPUSCULAR HEMOGLOBIN 29.7 pg (25-34); MEAN CORPUSCULAR HGB CONC 34.8 g/dl (32-36); MONO % 5.1 %; MONO ABS # 0.44 K/uL (0.11-0.59); NEUT % 66.7 %; NEUT ABS # 5.79 K/uL (1.4-6.5); PLATELET COUNT 247 K/uL (130-400); RED CELL DISTRIBUTION WIDTH CV 13.5 % (11.5-14.5); WHITE BLOOD COUNT 8.68 K/uL (4.8-10.8)
[2017-12-05 18:06] LABS: ALBUMIN 3.9 gm/dl (3.4-5.0); ALKALINE PHOSPHATASE 136 U/L (45-117); ALT/SGPT 35 U/L (12-78); AST/SGOT 35 U/L (15-37); BLOOD UREA NITROGEN 30 mg/dl (7-18); CALCIUM 9.3 mg/dl (8.5-10.1); CARBON DIOXIDE 25 mmol/L (21-32); CREATININE 1.48 mg/dl (0.60-1.40); GLUCOSE 272 mg/dl (70-99); POTASSIUM 3.6 mmol/L (3.5-5.1); SODIUM 136 mmol/L (136-145); TOTAL PROTEIN 8.1 gm/dl (6.4-8.2)
== END | disposition home or self-care (01) ==
LOC: C.LAB1850 16:44
PROVIDERS: ATTEND Physician Assistant
DX: R53.83 Other fatigue (principal); R26.89 Other abnormalities of gait and mobility; H57.02 Anisocoria; R25.1 Tremor, unspecified